=== PATIENT | female | born 1940 | race Caucasian/White ===

== ENCOUNTER 2020-03-27 17:39 | Emergency (ER) | payer MEDICARE, OTHER ==
--- NOTE | 2020-03-27 18:59 | XR ---
EXAMINATION TYPE: XR KUB DATE OF EXAM: 03/27/2020 COMPARISON: 04/05/2017 HISTORY: Abdominal pain TECHNIQUE: FINDINGS: 2 views upright were obtained and show no sign of intestinal obstruction or pneumoperitoneu m. There is retained fecal material in the rectum. Lung bases are clear. There is no evidence of a ma ss. IMPRESSION: Rectal fecal impaction. No free air. Constipation similar to old exam.
[2020-03-27] MEDS ORDERED: MAGNESIUM CITRATE 296 ML BOTTLE PO ONE (19:09)
--- NOTE | 2020-03-27 19:12 | ED ---
General Adult HPI - General Chief complaint: Abdominal Pain Stated complaint: Diarrhea(dark) abd pain Time Seen by Provider: 03/27/20 17:54 Source: patient, RN notes reviewed, old records reviewed Mode of arrival: wheelchair Limitations: no limitations - History of Present Illness Initial comments: 80-year-old female presenting with abdominal pain. Patient has history of constipation. She states that over the past several days she's had increased ab dominal distention, and diarrhea. She states she had had some leakage as well as normal bowel movements in between. She denies fever. She denies vomiting. Denies dysuria or hematuria. - Related Data Home Medications Medication Instructions Recorded Confirmed ALPRAZolam [Xanax] 0.5 mg PO Q12H PRN 05/29/14 04/05/17 Atenolol 50 mg PO BID 05/29/14 04/05/17 amLODIPine BESYLATE [Amlodipine 10 mg PO DAILY 05/29/14 04/05/17 Besylate] cloNIDine HCL 0.3 mg PO TID 05/29/14 04/05/17 lisinopriL [Lisinopril] 20 mg PO BID 05/29/14 04/05/17 Latanoprost [Xalatan 0.005%] 1 drop BOTH EYES HS 04/05/17 04/05/17 Lovastatin [Mevacor] 80 mg PO DAILY 04/05/17 04/05/17 Vit A/Vit C/Vit E/Zinc/Copper 1 cap PO BID 04/05/17 04/05/17 [ICAPS SOFTGEL] hydrALAZINE HCL [Apresoline] 25 mg PO AC-TID 04/05/17 04/05/17 hydroCHLOROthiazide [Hydrodiuril] 25 mg PO DAILY 04/05/17 04/05/17 Previous Rx's Medication Instructions Recorded Docusate [Colace] 100 mg PO BID #60 capsule 03/27/20 Polyethylene Glycol 3350 [Miralax] 17 gm PO DAILY #527 gm 03/27/20 Allergies Allergy/AdvReac Type Severity Reaction Status Date / Time amoxicillin Allergy Rash/Hives Verified 03/27/20 17:46 Penicillins Allergy Rash/Hives Verified 03/27/20 17:46 ciprofloxacin [From Cipro] AdvReac stomach Verified 03/27/20 17:46 upset and dizzy sulfamethoxazole AdvReac stomach Verified 03/27/20 17:46 [From Bactrim] upset and dizzy trimethoprim [From Bactrim] AdvReac stomach Verified 03/27/20 17:46 upset and dizzy Review of Systems ROS Statement: Those systems with pertinent positive or pertinent negative responses have been documented in the HPI. ROS Other: All systems not noted in ROS Statement are negative. Past Medical History Past Medical History: Hyperlipidemia, Hypertension Additional Past Medical History / Comment(s): chronic constipation History of Any Multi-Drug Resistant Organisms: None Reported Past Surgical History: Appendectomy Past Psychological History: Anxiety Smoking Status: Never smoker Past Alcohol Use History: None Reported Past Drug Use History: None Reported General Exam Limitations: no limitations General appearance: alert, in no apparent distress Head exam: Present: atraumatic, normocephalic Eye exam: Present: normal appearance, PERRL ENT exam: Present: normal exam Neck exam: Present: normal inspection. Absent: tenderness, meningismus Respiratory exam: Present: normal lung sounds bilaterally. Absent: respiratory distress, wheezes Cardiovascular Exam: Present: regular rate, normal rhythm GI/Abdominal exam: Present: soft, distended, tenderness (Minimal generalized tenderness) Rectal exam: Present: fecal impaction Extremities exam: Present: normal inspection, full ROM Back exam: Present: normal inspection. Absent: full ROM Neurological exam: Present: alert, oriented X3, CN II-XII intact. Absent: motor sensory deficit Psychiatric exam: Present: normal affect, normal mood Skin exam: Present: warm, dry, intact. Absent: cyanosis, diaphoretic Course Vital Signs 03/27/20 17:42 Temperature 97.9 F Pulse Rate 72 Respiratory 20 Rate Blood Pressure 172/102 O2 Sat by Pulse 97 Oximetry Medical Decision Making - Medical Decision Making 80-year-old female with generalized abdominal pain, diarrhea. History suggestive of constipation with stool leakage. Exam confirming rectal fecal impaction. X-ray shows a large stool burden. She has been disimpacted in the emergency department and was given an enema with a large amount of stool output. She is feeling much better, pain has resolved. She is given also magnesium citrate and will be prescribed MiraLAX and Colace. She will return with worsening or changing symptoms. - Lab Data Result diagrams: 03/27/20 18:38 03/27/20 18:38 Lab Results 03/27/20 03/27/20 03/27/20 Range/Units 18:38 18:38 18:38 WBC 10.7 H (3.8-10.6) k/uL RBC 5.19 (3.80-5.40) m/uL Hgb 15.5 (11.4-16.0) gm/dL Hct 48.7 H (34.0-46.0) % MCV 93.9 (80.0-100.0) fL MCH 29.9 (25.0-35.0) pg MCHC 31.8 (31.0-37.0) g/dL RDW 13.6 (11.5-15.5) % Plt Count 248 (150-450) k/uL Neutrophils % 71 % Lymphocytes % 20 % Monocytes % 5 % Eosinophils % 2 % Basophils % 1 % Neutrophils # 7.7 (1.3-7.7) k/uL Lymphocytes # 2.1 (1.0-4.8) k/uL Monocytes # 0.6 (0-1.0) k/uL Eosinophils # 0.2 (0-0.7) k/uL Basophils # 0.1 (0-0.2) k/uL PT 9.7 (9.0-12.0) sec INR 0.9 (<1.2) APTT 23.8 (22.0-30.0) sec Sodium 139 (137-145) mmol/L Potassium 4.6 (3.5-5.1) mmol/L Chloride 103 (98-107) mmol/L Carbon Dioxide 27 (22-30) mmol/L Anion Gap 9 mmol/L BUN 21 H (7-17) mg/dL Creatinine 0.65 (0.52-1.04) mg/dL Est GFR (CKD-EPI)AfAm >90 (>60 ml/min/1.73 sqM) Est GFR (CKD-EPI)NonAf 84 (>60 ml/min/1.73 sqM) Glucose 111 H (74-99) mg/dL Plasma Lactic Acid Feliciano (0.7-2.0) mmol/L Calcium 9.9 (8.4-10.2) mg/dL Total Bilirubin 0.9 (0.2-1.3) mg/dL AST 39 H (14-36) U/L ALT 17 (4-34) U/L Alkaline Phosphatase 68 (38-126) U/L Total Protein 7.7 (6.3-8.2) g/dL Albumin 4.8 (3.5-5.0) g/dL Amylase 57 (30-110) U/L Lipase 129 (23-300) U/L Stool Occult Blood (Negative) 03/27/20 03/27/20 Range/Units 18:38 18:38 WBC (3.8-10.6) k/uL RBC (3.80-5.40) m/uL Hgb (11.4-16.0) gm/dL Hct (34.0-46.0) % MCV (80.0-100.0) fL MCH (25.0-35.0) pg MCHC (31.0-37.0) g/dL RDW (11.5-15.5) % Plt Count (150-450) k/uL Neutrophils % % Lymphocytes % % Monocytes % % Eosinophils % % Basophils % % Neutrophils # (1.3-7.7) k/uL Lymphocytes # (1.0-4.8) k/uL Monocytes # (0-1.0) k/uL Eosinophils # (0-0.7) k/uL Basophils # (0-0.2) k/uL PT (9.0-12.0) sec INR (<1.2) APTT (22.0-30.0) sec Sodium (137-145) mmol/L Potassium (3.5-5.1) mmol/L Chloride (98-107) mmol/L Carbon Dioxide (22-30) mmol/L Anion Gap mmol/L BUN (7-17) mg/dL Creatinine (0.52-1.04) mg/dL Est GFR (CKD-EPI)AfAm (>60 ml/min/1.73 sqM) Est GFR (CKD-EPI)NonAf (>60 ml/min/1.73 sqM) Glucose (74-99) mg/dL Plasma Lactic Acid Feliciano 1.6 (0.7-2.0) mmol/L Calcium (8.4-10.2) mg/dL Total Bilirubin (0.2-1.3) mg/dL AST (14-36) U/L ALT (4-34) U/L Alkaline Phosphatase (38-126) U/L Total Protein (6.3-8.2) g/dL Albumin (3.5-5.0) g/dL Amylase (30-110) U/L Lipase (23-300) U/L Stool Occult Blood Negative (Negative) Disposition Clinical Impression: Constipation, Abdominal pain Disposition: HOME SELF-CARE Condition: Good Instructions (If sedation given, give patient instructions): Abdominal Pain (ED), Fecal Impaction (ED), Constipation (ED) Prescriptions: Docusate [Colace] 100 mg PO BID #60 capsule Polyethylene Glycol 3350 [Miralax] 17 gm PO DAILY #527 gm Is patient prescribed a controlled substance at d/c from ED?: No Referrals: Melvin Gamino DO [Primary Care Provider] - 1-2 days Time of Disposition: 19:55
[2020-03-27 19:23] LABS: Basophils # (A) 0.1 k/uL (0-0.2); Basophils % (A) 1 %; Eosinophils # (A) 0.2 k/uL (0-0.7); Eosinophils % (A) 2 %; HCT 48.7 % (34.0-46.0); HGB 15.5 gm/dL (11.4-16.0); Lymphocytes # (A) 2.1 k/uL (1.0-4.8); Lymphocytes % (A) 20 %; MCH 29.9 pg (25.0-35.0); MCHC 31.8 g/dL (31.0-37.0); MCV 93.9 fL (80.0-100.0); Mean Platelet Volume 8.9; Monocytes # (A) 0.6 k/uL (0-1.0); Monocytes % (A) 5 %; Neutrophils # (A) 7.7 k/uL (1.3-7.7); Neutrophils % (A) 71 %; Platelet Count 248 k/uL (150-450); RBC 5.19 m/uL (3.80-5.40); RDW 13.6 % (11.5-15.5); WBC 10.7 k/uL (3.8-10.6)
[2020-03-27 19:33] LABS: INR 0.9 (<1.2); Partial Thromboplastin Time 23.8 sec (22.0-30.0); Prothrombin Time 9.7 sec (9.0-12.0)
[2020-03-27 19:40] LABS: ALT 17 U/L (4-34); AST 39 U/L (14-36); African American GFR (CKD) >90 (>60 ml/min/1.73 sqM); Albumin 4.8 g/dL (3.5-5.0); Alkaline Phosphatase 68 U/L (38-126); Amylase 57 U/L (30-110); Anion Gap 9 mmol/L; Blood Urea Nitrogen 21 mg/dL (7-17); Calcium 9.9 mg/dL (8.4-10.2); Carbon Dioxide 27 mmol/L (22-30); Chloride 103 mmol/L (98-107); Glucose 111 mg/dL (74-99); Non-African American GFR(CKD) 84 (>60 ml/min/1.73 sqM); Potassium 4.6 mmol/L (3.5-5.1); Sodium 139 mmol/L (137-145); Total Bilirubin 0.9 mg/dL (0.2-1.3); Total Protein 7.7 g/dL (6.3-8.2)
[2020-03-27 20:23] VITALS: BP 178/90; PULSE 74; RESP 19; TEMP 98
== END 2020-03-27 20:12 | disposition home or self-care (01) ==
LOC: EC 17:39
DX: K59.00 Constipation, unspecified (principal); F41.9 Anxiety disorder, unspecified; E78.5 Hyperlipidemia, unspecified; I10 Essential (primary) hypertension; Z79.899 Other long term (current) drug therapy; Z88.0 Allergy status to penicillin; Z88.1 Allergy status to other antibiotic agents; Z88.2 Allergy status to sulfonamides; Z90.49 Acquired absence of other specified parts of digestive tract
CPT/HCPCS: 36415; 74018; 80053; 82150; 82272; 83605; 83690; 85025; 85610; 85730; 99284

== ENCOUNTER 2022-06-28 08:37 | Observation (INO) | payer MEDICARE, OTHER ==
[2022-06-28] MEDS ORDERED: ACETAMINOPHEN TAB 500 MG TAB PO STA (09:07)
--- NOTE | 2022-06-28 09:11 | ED ---
General Adult HPI - General Chief complaint: Chest Pain Stated complaint: chest pain Time Seen by Provider: 06/28/22 08:45 Source: patient, family, RN notes reviewed, old records reviewed Mode of arrival: ambulatory Limitations: no limitations - History of Present Illness Initial comments: This is an 82-year-old female presents emergency Department with a past medical history significant for smoking high blood pressure high cholesterol. Patient comes in today because she woke up the middle night with chest pain. Patient states she thinks taking a deep breath sometimes makes it worse. Patient denies shortness of breath per patient states she's had occasional cough. Patient denies any recent lifting or moving. Patient states pressing the area around her left breast does cause her tenderness. Patient denies any diaphoretic episodes. Patient denies any abdominal pain patient denies nausea vomiting diarrhea per patient denies any increased swelling to her legs she states she always has some swelling. - Related Data Home Medications Medication Instructions Recorded Confirmed ALPRAZolam [Xanax] 0.5 mg PO Q12H PRN 05/29/14 06/28/22 Lovastatin [Mevacor] 80 mg PO HS 04/05/17 06/28/22 Aspirin EC [Ecotrin Low Dose] 81 mg PO DAILY 06/28/22 06/28/22 Cholecalciferol [Vitamin D3 (25 25 mcg PO DAILY 06/28/22 06/28/22 Mcg = 1000 Iu)] Nitroglycerin Sl Tabs [Nitrostat] 0.4 mg SUBLINGUAL Q5M PRN 06/28/22 06/28/22 atenoloL [Tenormin] 50 mg PO BID 06/28/22 06/28/22 cloNIDine HCL [Catapres] 0.3 mg PO TID 06/28/22 06/28/22 hydrALAZINE HCL [Apresoline] 75 mg PO TID 06/28/22 06/28/22 lisinopriL [Zestril] 20 mg PO BID 06/28/22 06/28/22 Allergies Allergy/AdvReac Type Severity Reaction Status Date / Time amoxicillin Allergy Rash/Hives Verified 06/28/22 11:24 Penicillins Allergy Rash/Hives Verified 06/28/22 11:25 ciprofloxacin [From Cipro] AdvReac stomach Verified 06/28/22 11:24 upset and dizzy sulfamethoxazole AdvReac stomach Verified 06/28/22 11:24 [From Bactrim] upset and dizzy trimethoprim [From Bactrim] AdvReac stomach Verified 06/28/22 11:24 upset and dizzy Review of Systems ROS Statement: Those systems with pertinent positive or pertinent negative responses have been documented in the HPI. ROS Other: All systems not noted in ROS Statement are negative. Past Medical History Past Medical History: Hyperlipidemia, Hypertension Additional Past Medical History / Comment(s): chronic constipation History of Any Multi-Drug Resistant Organisms: None Reported Past Surgical History: Appendectomy Past Psychological History: Anxiety Smoking Status: Never smoker Past Alcohol Use History: None Reported Past Drug Use History: None Reported General Exam - General Exam Comments Initial Comments: GENERAL: Patient is well-developed and well-nourished. Patient is nontoxic and well- hydrated and is in mild distress. ENT: Neck is soft and supple. No significant lymphadenopathy is noted. Oropharynx is clear. Moist mucous membranes. Neck has full range of motion without eliciting any pain. EYES: The sclera were anicteric and conjunctiva were pink and moist. Extraocular movements were intact and pupils were equal round and reactive to light. Eyelids were unremarkable. PULMONARY: Unlabored respirations. Good breath sounds bilaterally. No audible rales rhonchi or wheezing was noted. CARDIOVASCULAR: There is a regular rate and rhythm without any murmurs gallops or rubs. Patient has tenderness to palpation around the left breast no rashes or lesions noted ABDOMEN: Soft and nontender with normal bowel sounds. SKIN: Skin is clear with no lesions or rashes and otherwise unremarkable. NEUROLOGIC: Patient is alert and oriented x3. Cranial nerves II through XII are grossly intact. Motor and sensory are also intact. Normal speech, volume and content. Symmetrical smile. MUSCULOSKELETAL: Normal extremities with adequate strength and full range of motion. No lower extremity swelling or edema. No calf tenderness. LYMPHATICS: No significant lymphadenopathy is noted PSYCHIATRIC: Normal psychiatric evaluation. Limitations: no limitations Course Vital Signs 06/28/22 06/28/22 06/28/22 08:43 08:55 09:05 Temperature 98 F 99.5 F Pulse Rate 94 Pulse Rate [ 72 [employer] ] Respiratory 18 Rate Blood Pressure 159/84 O2 Sat by Pulse 95 Oximetry 06/28/22 10:00 Temperature Pulse Rate 68 Pulse Rate [ [employer] ] Respiratory 18 Rate Blood Pressure 118/72 O2 Sat by Pulse 94 L Oximetry Medical Decision Making - Medical Decision Making EKG was interpreted by myself shows a sinus rhythm at 73 bpm NC interval is 160 QRS is 74 QT interval 382 QTC is 49. Patient's EKG shows no ST segment elevation or depression. Was pt. sent in by a medical professional or institution (, NICHOLAS, RECEIVING WORKER, urgent care, hospital, or assisted...) When possible be specific @ -No Did you speak to anyone other than the patient for history (EMS, parent, family, police, friend...)? What history was obtained from this source @ -No Did you review nursing and triage notes (agree or disagree)? Why? @ -I reviewed and agree with nursing and triage notes Were old charts reviewed (outside hosp., previous admission, EMS record, old EKG, old radiological studies, urgent care reports/EKG's, assisted records)? Report findings @ -Previous radiological studies were reviewed Differential Diagnosis (chest pain, altered mental status, abdominal pain women, abdominal pain men, vaginal bleeding, weakness, fever, dyspnea, syncope, headache, dizziness, GI bleed, back pain, seizure, CVA, palpatations, mental health)? @ -Differential Chest Pain: Stable Angina, Unstable Angina, STEMI, NSTEMI Aortic Dissection, Pneumothorax, Musculoskeletal, Esophageal Spasm GERD, Cholecystitis, Pancreatitis, Zoster, this is not meant to be an all-inclusive list. EKG interpreted by me (3pts min.). @ -As above X-rays interpreted by me (1pt min.). @ -Chest x-rays interpreted by myself is on no acute normalities. CT interpreted by me (1pt min.). @ -Computed tomography scan was interpreted by myself it does show a left upper lobe pneumonia anteriorly U/S interpreted by me (1pt. min.). @ -None done What testing was considered but not performed or refused? (CT, X-rays, U/S, labs)? Why? @ -None What meds were considered but not given or refused? Why? @ -None Did you discuss the management of the patient with other professionals (professionals i.e. NICHOLAS García, RECEIVING WORKER, lab, RT, psych nurse, medical social consultant, manager business process, teacher, community reinvestment act officer, piano case maker)? Give summary @ -I spoke with [facility] agreed to admit the patient admitted the patient remaining orders Was smoking cessation discussed for >3mins.? @ -No Was critical care preformed (if so, how long)? @ -No Were there social determinants of health that impacted care today? How? (Homelessness, low income, unemployed, alcoholism, drug addiction, transportation, low edu. Level, literacy, decrease access to med. care, retirement, rehab)? @ -No Was there de-escalation of care discussed even if they declined (Discuss DNR or withdrawal of care, Hospice)? DNR status @ -No What co-morbidities impacted this encounter? (DM, HTN, Smoking, COPD, CAD, Cancer, CVA, ARF, Chemo, Hep., AIDS, mental health diagnosis, sleep apnea, morbid obesity)? @ -Patient has a smoking history which can worsen her gas exchange lungs and lead to hypoxia especially with pneumonia. Was patient admitted / discharged? Hospital course, mention meds given and route, prescriptions, significant lab abnormalities, going to OR and other pertinent info. @ -Patient's CAT scan showed a pneumonia I started the patient antibiotics I ordered blood cultures and a lactic acid. I spoke with [facility] significant at the patient admitted the patient. Patient was diagnosed with pneumonia at 1125. Undiagnosed new problem with uncertain prognosis? @ -No Drug Therapy requiring intensive monitoring for toxicity (Heparin, Nitro, Insulin, Cardizem)? @ -No Were any procedures done? @ -No Diagnosis/symptom? @ -Pneumonia Acute, or Chronic, or Acute on Chronic? @ -Acute Uncomplicated (without systemic symptoms) or Complicated (systemic symptoms)? @ -Complicated Side effects of treatment? @ -No Exacerbation, Progression, or Severe Exacerbation? @ -No Poses a threat to life or bodily function? How? (Chest pain, [place], [place], pneumonia, PE, COPD, DKA, ARF, appy, cholecystitis, CVA, Diverticulitis, Homicidal, Suicidal, threat to staff... and all critical care pts) @ -Yes can lead to hypoxia which lead to end organ dysfunction - Lab Data Result diagrams: 06/28/22 09:10 06/28/22 09:10 Lab Results 06/28/22 06/28/22 06/28/22 Range/Units 09:10 09:10 09:10 WBC 18.7 H (3.8-10.6) k/uL RBC 4.62 (3.80-5.40) m/uL Hgb 14.2 (11.4-16.0) gm/dL Hct 42.9 (34.0-46.0) % MCV 92.7 (80.0-100.0) fL MCH 30.7 (25.0-35.0) pg MCHC 33.1 (31.0-37.0) g/dL RDW 13.9 (11.5-15.5) % Plt Count 183 (150-450) k/uL MPV 9.0 Neutrophils % 89 % Lymphocytes % 5 % Monocytes % 4 % Eosinophils % 1 % Basophils % 0 % Neutrophils # 16.6 H (1.3-7.7) k/uL Lymphocytes # 0.9 L (1.0-4.8) k/uL Monocytes # 0.8 (0-1.0) k/uL Eosinophils # 0.2 (0-0.7) k/uL Basophils # 0.0 (0-0.2) k/uL PT 9.6 (9.0-12.0) sec INR 0.9 (<1.2) APTT 23.2 (22.0-30.0) sec D-Dimer 0.84 H (<0.60) mg/L FEU Sodium 138 (137-145) mmol/L Potassium 4.0 (3.5-5.1) mmol/L Chloride 103 (98-107) mmol/L Carbon Dioxide 31 H (22-30) mmol/L Anion Gap 4 mmol/L BUN 17 (7-17) mg/dL Creatinine 0.55 (0.52-1.04) mg/dL Est GFR (CKD-EPI)AfAm >90 (>60 ml/min/1.73 sqM) Est GFR (CKD-EPI)NonAf 88 (>60 ml/min/1.73 sqM) Glucose 107 H (74-99) mg/dL Calcium 9.1 (8.4-10.2) mg/dL Magnesium 2.1 (1.6-2.3) mg/dL Total Bilirubin 0.7 (0.2-1.3) mg/dL AST 24 (14-36) U/L ALT 17 (4-34) U/L Alkaline Phosphatase 63 (38-126) U/L Troponin I (0.000-0.034) ng/mL Total Protein 6.5 (6.3-8.2) g/dL Albumin 4.0 (3.5-5.0) g/dL 06/28/22 Range/Units 09:10 WBC (3.8-10.6) k/uL RBC (3.80-5.40) m/uL Hgb (11.4-16.0) gm/dL Hct (34.0-46.0) % MCV (80.0-100.0) fL MCH (25.0-35.0) pg MCHC (31.0-37.0) g/dL RDW (11.5-15.5) % Plt Count (150-450) k/uL MPV Neutrophils % % Lymphocytes % % Monocytes % % Eosinophils % % Basophils % % Neutrophils # (1.3-7.7) k/uL Lymphocytes # (1.0-4.8) k/uL Monocytes # (0-1.0) k/uL Eosinophils # (0-0.7) k/uL Basophils # (0-0.2) k/uL PT (9.0-12.0) sec INR (<1.2) APTT (22.0-30.0) sec D-Dimer (<0.60) mg/L FEU Sodium (137-145) mmol/L Potassium (3.5-5.1) mmol/L Chloride (98-107) mmol/L Carbon Dioxide (22-30) mmol/L Anion Gap mmol/L BUN (7-17) mg/dL Creatinine (0.52-1.04) mg/dL Est GFR (CKD-EPI)AfAm (>60 ml/min/1.73 sqM) Est GFR (CKD-EPI)NonAf (>60 ml/min/1.73 sqM) Glucose (74-99) mg/dL Calcium (8.4-10.2) mg/dL Magnesium (1.6-2.3) mg/dL Total Bilirubin (0.2-1.3) mg/dL AST (14-36) U/L ALT (4-34) U/L Alkaline Phosphatase (38-126) U/L Troponin I 0.012 (0.000-0.034) ng/mL Total Protein (6.3-8.2) g/dL Albumin (3.5-5.0) g/dL Disposition Clinical Impression: Pneumonia Disposition: ADMITTED IP TO THIS HOSP Referrals: Melvin Gamino DO [Primary Care Provider] - 1-2 days Time of Disposition: 11:25
[2022-06-28 09:25] LABS: Basophils % (A) 0 %; Eosinophils # (A) 0.2 k/uL (0-0.7); Eosinophils % (A) 1 %; HCT 42.9 % (34.0-46.0); HGB 14.2 gm/dL (11.4-16.0); Lymphocytes # (A) 0.9 k/uL (1.0-4.8); Lymphocytes % (A) 5 %; MCH 30.7 pg (25.0-35.0); MCHC 33.1 g/dL (31.0-37.0); MCV 92.7 fL (80.0-100.0); Monocytes # (A) 0.8 k/uL (0-1.0); Monocytes % (A) 4 %; Neutrophils # (A) 16.6 k/uL (1.3-7.7); Neutrophils % (A) 89 %; Platelet Count 183 k/uL (150-450); RBC 4.62 m/uL (3.80-5.40); RDW 13.9 % (11.5-15.5); WBC 18.7 k/uL (3.8-10.6)
[2022-06-28 09:37] LABS: INR 0.9 (<1.2); Partial Thromboplastin Time 23.2 sec (22.0-30.0); Prothrombin Time 9.6 sec (9.0-12.0)
--- NOTE | 2022-06-28 09:45 | XR ---
EXAMINATION TYPE: XR chest 2V DATE OF EXAM: 06/28/2022 9:37 AM COMPARISON: Chest radiographs from 05/28/2014. TECHNIQUE: XR chest 2V Frontal and lateral views of the chest. CLINICAL INDICATION:Female, 82 years old with history of Chest Pain; FINDINGS: Lungs/Pleura: There is flattening of the diaphragm with increased lucency of the lungs. No evidence o f pneumothorax, pleural effusion or focal consolidation. Pulmonary vascularity: Unremarkable. Heart/mediastinum: Cardiomediastinal silhouette is unremarkable. Atherosclerotic calcifications are seen in the aorta. Musculoskeletal: Multiple level degenerative disc disease changes seen throughout the spine. Bilatera l shoulder arthropathy with suggested calcific tendinosis bilaterally. Levocurvature of the upper tho racic spine. IMPRESSION: 1. No acute cardiopulmonary disease process. 2. COPD changes.
[2022-06-28 10:01] LABS: ALT 17 U/L (4-34); AST 24 U/L (14-36); African American GFR (CKD) >90 (>60 ml/min/1.73 sqM); Alkaline Phosphatase 63 U/L (38-126); Anion Gap 4 mmol/L; Blood Urea Nitrogen 17 mg/dL (7-17); Calcium 9.1 mg/dL (8.4-10.2); Carbon Dioxide 31 mmol/L (22-30); Chloride 103 mmol/L (98-107); Glucose 107 mg/dL (74-99); Magnesium 2.1 mg/dL (1.6-2.3); Non-African American GFR(CKD) 88 (>60 ml/min/1.73 sqM); Sodium 138 mmol/L (137-145); Total Bilirubin 0.7 mg/dL (0.2-1.3); Total Protein 6.5 g/dL (6.3-8.2)
--- NOTE | 2022-06-28 11:06 | CT ---
EXAMINATION TYPE: CT chest angio for PE CT DLP: 181.7 mGycm, Automated exposure control for dose reduction was used. DATE OF EXAM: 06/28/2022 10:50 AM COMPARISON: . Chest radiograph from same day. CT chest abdomen and pelvis 05/28/2014. CLINICAL INDICATION:Female, 82 years old with history of Elevated d-dimer, chest pain; chest pain TECHNIQUE/CONTRAST: CTA scan of the thorax is performed without and with IV Contrast, patient injected with 100 mL of Iso leidy 370, pulmonary embolism protocol. MIP images are created and reviewed. FINDINGS: Pulmonary Artery: There is no evidence for a filling defect within the pulmonary vasculature to sugge st acute pulmonary embolism. The pulmonary artery is of normal size. Lungs/Pleura: Minimal biapical pleural-parenchymal scarring. Mild centrilobular emphysematous changes . Patchy consolidation within the medial aspect of the right upper lobe. 1.6 cm nodule within the rig ht midlung medially (series 4, image 59), previous measured up to 1.4 cm in 2014. Patchy reticular gr oundglass opacities within the superior segment of the right lower lobe. Airway: Large airways are patent. Heart: Heart is within normal limits for size. No pericardial effusion. Vasculature: No evidence of aortic aneurysm. Atherosclerotic calcifications aorta and its branches. Mediastinum: No gross evidence of adenopathy. Musculoskeletal: No acute osseous abnormalities. Mild bilateral shoulder arthropathy. Scoliotic curva ture. Mild multilevel degenerative disc disease. Nonspecific sclerotic focus within the T5 vertebral body or possible bone island. Soft Tissues: Unremarkable. Lower neck: No significant findings. Upper Abdomen: No significant findings. IMPRESSION: 1. No evidence of pulmonary embolism. 2. Patchy consolidation within the medial aspect of the left upper lobe concerning for pneumonia. 3. Marginal increase in right midlung 1.6 cm pulmonary nodule, previously 1.4 cm in 2014. No new pulm onary nodules. Further evaluation with PET/CT is recommended. 4. Mild COPD changes.
[2022-06-28] MEDS ORDERED: cefTRIAXone IN SWFI 1,000 MG/10 ML SYRINGE IVP STA (11:24)
[2022-06-28] MEDS ORDERED: PNEUMONIA PROTOCOL UTILIZED 1 EACH MISC PO PRN (11:36)
[2022-06-28] MEDS ORDERED: NITROGLYCERIN SL TABS 0.4 MG TAB SUBLINGUAL PRN (13:18)
--- NOTE | 2022-06-28 13:31 | P.HPIM ---
History of Present Illness 82-year-old the female came in with complaints of chest pain which is pleuritic in nature has been going on for last 2-3 days increases with deep breathing patient had a chest x-ray which was within normal limits and the patient had a mildly elevated d-dimer because of which the CT of the chest was obtained and there was some infiltrate in the ER is concerned about pneumonia and patient was admitted for that reason the patient was given Rocephin in ER. I reviewed the CAT scan of the chest there is a mild nonspecific infiltrate in the nodule which has grown since last imaging. No infiltrate consistent with the pneumonia Patient does have elevated white count. Patient appears to have some pulmonary edema on the CAT scan of the chest does have bilateral pedal edema patient had an EF of around 60-60% REVIEW OF SYSTEMS: CONSTITUTIONAL: No fever, no malaise, no fatigue. HEENT: No recent visual problems or hearing problems. Denied any sore throat. CARDIOVASCULAR: No chest pain, orthopnea, PND, no palpitations, no syncope. PULMONARY: no hemoptysis. GASTROINTESTINAL: No diarrhea, no nausea, no vomiting, no abdominal pain. NEUROLOGICAL: No headaches, no weakness, no numbness. HEMATOLOGICAL: Denies any bleeding or petechiae. GENITOURINARY: Denies any burning micturition, frequency, or urgency. MUSCULOSKELETAL/RHEUMATOLOGICAL: Denies any joint pain, swelling, or any muscle pain. ENDOCRINE: Denies any polyuria or polydipsia. The rest of the 14-point review of systems is negative. PHYSICAL EXAMINATION: GENERAL: The patient is alert and oriented x3, not in any acute distress. Well developed, well nourished. HEENT: Pupils are round and equally reacting to light. EOMI. No scleral icterus. No conjunctival pallor. Normocephalic, atraumatic. No pharyngeal erythema. No thyromegaly. CARDIOVASCULAR: S1 and S2 present. No murmurs, rubs, or gallops. PULMONARY: Chest is clear to auscultation, no wheezing or crackles. ABDOMEN: Soft, nontender, nondistended, normoactive bowel sounds. No palpable o rganomegaly. MUSCULOSKELETAL: No joint swelling or deformity. EXTREMITIES: No cyanosis, clubbing, bilateral lower extremity edema NEUROLOGICAL: Gross neurological examination did not reveal any focal deficits. SKIN: No rashes. Assessment and plan -Chest pain: appears to be musculoskeletal there is no evidence of pneumonia pulmonary embolism in the computed tomography scan troponin is negative and the check 2 more sets of troponins appears to be noncardiac chest pain. Rule out pulmonary embolism -Possible congestive heart failure chronic diastolic dysfunction with mild acute exacerbation patient was started on low-dose of Lasix. -Hyperlipidemia -Hypertension DVT prophylaxis: Lovenox Past Medical History Past Medical History: Hyperlipidemia, Hypertension Additional Past Medical History / Comment(s): chronic constipation History of Any Multi-Drug Resistant Organisms: None Reported Past Surgical History: Appendectomy Past Psychological History: Anxiety Smoking Status: Never smoker Past Alcohol Use History: None Reported Past Drug Use History: None Reported Medications and Allergies Home Medications Medication Instructions Recorded Confirmed Type ALPRAZolam [Xanax] 0.5 mg PO Q12H PRN 05/29/14 06/28/22 History Lovastatin [Mevacor] 80 mg PO HS 04/05/17 06/28/22 History Aspirin EC [Ecotrin Low Dose] 81 mg PO DAILY 06/28/22 06/28/22 History Cholecalciferol [Vitamin D3 (25 25 mcg PO DAILY 06/28/22 06/28/22 History Mcg = 1000 Iu)] Nitroglycerin Sl Tabs [Nitrostat] 0.4 mg SUBLINGUAL Q5M PRN 06/28/22 06/28/22 History atenoloL [Tenormin] 50 mg PO BID 06/28/22 06/28/22 History cloNIDine HCL [Catapres] 0.3 mg PO TID 06/28/22 06/28/22 History hydrALAZINE HCL [Apresoline] 75 mg PO TID 06/28/22 06/28/22 History lisinopriL [Zestril] 20 mg PO BID 06/28/22 06/28/22 History Allergies Allergy/AdvReac Type Severity Reaction Status Date / Time amoxicillin Allergy Rash/Hives Verified 06/28/22 11:24 Penicillins Allergy Rash/Hives Verified 06/28/22 11:25 ciprofloxacin [From Cipro] AdvReac stomach Verified 06/28/22 11:24 upset and dizzy sulfamethoxazole AdvReac stomach Verified 06/28/22 11:24 [From Bactrim] upset and dizzy trimethoprim [From Bactrim] AdvReac stomach Verified 06/28/22 11:24 upset and dizzy Physical Exam Vitals: Vital Signs Temp Pulse Pulse Resp BP Pulse Ox 06/28/22 12:04 71 16 120/66 94 L 06/28/22 10:00 68 18 118/72 94 L 06/28/22 09:05 99.5 F 06/28/22 08:55 72 06/28/22 08:43 98 F 94 18 159/84 95 Intake and Output 06/27/22 06/28/22 06/28/22 22:59 06:59 14:59 Other: Weight 45.359 kg Results CBC & Chem 7: 06/28/22 09:10 06/28/22 09:10 Labs: Abnormal Lab Results - Last 24 Hours (Table) 06/28/22 06/28/22 06/28/22 Range/Units 09:10 09:10 09:10 WBC 18.7 H (3.8-10.6) k/uL Neutrophils # 16.6 H (1.3-7.7) k/uL Lymphocytes # 0.9 L (1.0-4.8) k/uL D-Dimer 0.84 H (<0.60) mg/L FEU Carbon Dioxide 31 H (22-30) mmol/L Glucose 107 H (74-99) mg/dL
[2022-06-28] MEDS: ACETAMINOPHEN TAB 325 MG TAB PO PRN ×2 (15:21→22:39)
[2022-06-28] MEDS: FUROSEMIDE 10 MG/ML 2 ML VIAL IV SCH ×2 (15:21→20:40)
[2022-06-28] MEDS: hydrALAZINE HCL 25 MG TAB PO SCH ×2 (16:00→20:47)
[2022-06-28] MEDS: ATORVASTATIN 20 MG TAB PO SCH (20:40)
[2022-06-28] MEDS: atenoloL 50 MG TAB PO SCH (20:40)
[2022-06-28] MEDS: ALPRAZolam 0.5 MG TAB PO PRN (20:50)
[2022-06-29 06:24] LABS: African American GFR (CKD) >90 (>60 ml/min/1.73 sqM); Anion Gap 6 mmol/L; Blood Urea Nitrogen 16 mg/dL (7-17); Calcium 8.6 mg/dL (8.4-10.2); Carbon Dioxide 33 mmol/L (22-30); Chloride 99 mmol/L (98-107); Glucose 91 mg/dL (74-99); Non-African American GFR(CKD) 81 (>60 ml/min/1.73 sqM); Potassium 3.2 mmol/L (3.5-5.1); Sodium 138 mmol/L (137-145)
--- NOTE | 2022-06-29 08:11 | XR ---
EXAMINATION TYPE: XR chest 2V DATE OF EXAM: 06/29/2022 7:46 AM COMPARISON: Chest radiographs from 06/28/2022 TECHNIQUE: XR chest 2V Frontal and lateral views of the chest. CLINICAL INDICATION:Female, 82 years old with history of pneumonia; FINDINGS: Lungs/Pleura: There is flattening of the diaphragm with increased lucency of the lungs. No evidence o f pneumothorax, pleural effusion or focal consolidation. Pulmonary vascularity: Unremarkable. Heart/mediastinum: Cardiomediastinal silhouette is unremarkable. Musculoskeletal: No acute osseous pathology. IMPRESSION: 1. No acute cardiopulmonary disease process. 2. COPD changes.
[2022-06-29] MEDS: hydrALAZINE HCL 25 MG TAB PO SCH ×3 (08:32→21:25)
[2022-06-29] MEDS: atenoloL 50 MG TAB PO SCH ×2 (08:32→20:20)
[2022-06-29] MEDS: ACETAMINOPHEN TAB 325 MG TAB PO PRN (08:33)
[2022-06-29] MEDS: ENOXAPARIN 40 MG/0.4 ML SYRINGE SQ SCH (08:34)
[2022-06-29] MEDS: ASPIRIN 81 MG PO SCH (08:34)
[2022-06-29] MEDS: FUROSEMIDE 10 MG/ML 2 ML VIAL IV SCH (09:07)
[2022-06-29] MEDS ORDERED: Potassium Replacement Protocol 1 EACH MISC MISCELLANE PRN (09:55)
[2022-06-29] MEDS: POTASSIUM CHLORIDE ER 20 MEQ TAB.ER PO SCH ×2 (10:09→11:02)
[2022-06-29] MEDS: NICOTINE 14MG/24HR PATCH TRANSDERM SCH (10:09)
[2022-06-29 10:43] VITALS: BMI 18.8
[2022-06-29] MEDS: IPRATROPIUM-ALBUTEROL 3 ML NEB INHALATION SCH ×3 (12:12→20:48)
[2022-06-29] MEDS: BUDESONIDE 1 MG/2 ML NEBU INHALATION SCH ×2 (12:13→20:48)
[2022-06-29] MEDS ORDERED: ONDANSETRON 4 MG TAB PO PRN (14:00)
--- NOTE | 2022-06-29 19:13 | P.PN ---
Progress Note - Text Progress Note Date: 06/29/22 82-year-old the female came in with complaints of chest pain which is pleuritic in nature has been going on for last 2-3 days increases with deep breathing patient had a chest x-ray which was within normal limits and the patient had a mildly elevated d-dimer because of which the CT of the chest was obtained and there was some infiltrate in the ER is concerned about pneumonia and patient was admitted for that reason the patient was given Rocephin in ER. I reviewed the CAT scan of the chest there is a mild nonspecific infiltrate in the nodule which has grown since last imaging. No infiltrate consistent with the pneumonia Patient does have elevated white count. Patient appears to have some pulmonary edema on the CAT scan of the chest does have bilateral pedal edema patient had an EF of around 60-60% 06/29/2022: I assumed care of the patient today. Patient begun IV Lasix 20 mg for possible CHF. Chest pain is much better. Has not been out of bed." Patient has been wheezing and shortness of breath. Has a smoker. Started on nebulized Pulmicort and DuoNeb. Have the patient sit up in a chair. Active Medications Acetaminophen (Acetaminophen Tab 325 Mg Tab) 650 mg PO Q6HR PRN PRN Reason: Fever and/ or Pain Last Admin: 06/29/22 08:33 Dose: 650 mg Albuterol/Ipratropium (Ipratropium-Albuterol 3 Ml Neb) 3 ml INHALATION RT-QID [facility] Last Admin: 06/29/22 16:17 Dose: 3 ml Alprazolam (Alprazolam 0.5 Mg Tab) 0.5 mg PO Q12H PRN PRN Reason: Anxiety Last Admin: 06/28/22 20:50 Dose: 0.5 mg Aspirin (Aspirin 81 Mg) 81 mg PO DAILY [facility] Last Admin: 06/29/22 08:34 Dose: 81 mg Atenolol (Atenolol 50 Mg Tab) 50 mg PO BID [facility] Last Admin: 06/29/22 08:32 Dose: 50 mg Atorvastatin Calcium (Atorvastatin 20 Mg Tab) 20 mg PO HS [facility] Last Admin: 06/28/22 20:40 Dose: 20 mg Budesonide (Budesonide 1 Mg/2 Ml Nebu) 1 mg INHALATION RT-BID [facility] Last Admin: 06/29/22 12:13 Dose: Not Given Enoxaparin Sodium (Enoxaparin 40 Mg/0.4 Ml Syringe) 40 mg SQ DAILY [facility] Last Admin: 06/29/22 08:34 Dose: 40 mg Furosemide (Furosemide 10 Mg/Ml 2 Ml Vial) 20 mg IV Q12HR [facility] Last Admin: 06/29/22 09:07 Dose: 20 mg Hydralazine HCl (Hydralazine Hcl 25 Mg Tab) 75 mg PO TID [facility] Last Admin: 06/29/22 16:23 Dose: 75 mg Miscellaneous Information (Pneumonia Protocol Utilized 1 Each Mis) 1 each PO ONCE PRN PRN Reason: Per Protocol Miscellaneous Information (Potassium Replacement Protocol 1 Each Mis) 1 each MISCELLANE DAILY PRN; Protocol PRN Reason: Per Protocol Nicotine (Nicotine 14mg/24hr Patch) 1 patch TRANSDERM DAILY [facility] Last Admin: 06/29/22 10:09 Dose: 1 patch Nitroglycerin (Nitroglycerin Sl Tabs 0.4 Mg Tab) 0.4 mg SUBLINGUAL Q5M PRN PRN Reason: Chest Pain Ondansetron HCl (Ondansetron 4 Mg/2 Ml Vial) 4 mg IVP Q6HR PRN PRN Reason: Nausea And Vomiting On examination: VITAL SIGNS: [99.1, 79, 14, 161/75, 92% room air] GENERAL APPEARANCE: BMI 18.9, laying in bed, tired appearing HEENT: Normal external appearance of nose and ear. Oral cavity normal EYES: Pupils equal. Conjunctiva normal. NECK: JVD not raised. Mass not palpable. RESPIRATORY: Respiratory effort increased. Lungs diminished breath sound mild wheezing CARDIOVASCULAR: First and second sounds normal. No edema. ABDOMEN: Soft. Liver and spleen not palpable. No tenderness. No mass palpable. PSYCHIATRY: Alert and oriented x3. Mood and affect anxious. INVESTIGATIONS, reviewed in the clinical context: Chest x-ray: COPD changes Sodium 138 potassium 3.2 creatinine 0.69 Troponin I 0.012, 0.018, 0.019 ProBNP 537 Procalcitonin 0.06 Assessment and plan -Chest pain: appears to be musculoskeletal there is no evidence of pneumonia pulmonary embolism in the computed tomography scan troponin is negative and the check 2 more sets of troponins appears to be noncardiac chest pain. -Possible congestive heart failure chronic diastolic dysfunction with mild acute exacerbation patient was started on low-dose of Lasix. Changed to oral Lasix tomorrow -Acute COPD exacerbation in a current smoker: New diagnosis DuoNeb 4 times a day, nebulized Pulmicort -Hyperlipidemia Lipitor -Essential Hypertension Tenormin, hydralazine DVT prophylaxis: Lovenox
[2022-06-29] MEDS: ONDANSETRON 4 MG/2 ML VIAL IVP PRN (19:17)
[2022-06-29] MEDS: lisinopriL 20 MG TAB PO SCH (20:20)
[2022-06-29] MEDS: ATORVASTATIN 20 MG TAB PO SCH (20:20)
[2022-06-29] MEDS: ALPRAZolam 0.5 MG TAB PO PRN (20:23)
[2022-06-30] MEDS: hydrALAZINE HCL 25 MG TAB PO SCH ×2 (02:50→10:01)
[2022-06-30 04:07] VITALS: RESP 18
[2022-06-30 05:10] VITALS: BP 165/77
[2022-06-30] MEDS: ACETAMINOPHEN TAB 325 MG TAB PO PRN (05:45)
[2022-06-30 06:07] LABS: African American GFR (CKD) >90 (>60 ml/min/1.73 sqM); Anion Gap 6 mmol/L; Blood Urea Nitrogen 19 mg/dL (7-17); Calcium 9.2 mg/dL (8.4-10.2); Carbon Dioxide 33 mmol/L (22-30); Chloride 101 mmol/L (98-107); Glucose 110 mg/dL (74-99); Non-African American GFR(CKD) 80 (>60 ml/min/1.73 sqM); Potassium 3.9 mmol/L (3.5-5.1); Sodium 140 mmol/L (137-145)
[2022-06-30] MEDS: IPRATROPIUM-ALBUTEROL 3 ML NEB INHALATION SCH ×2 (07:48→12:28)
[2022-06-30] MEDS: BUDESONIDE 1 MG/2 ML NEBU INHALATION SCH (07:48)
[2022-06-30 08:52] VITALS: PULSE 80; TEMP 99.4
[2022-06-30] MEDS ORDERED: FUROSEMIDE 20 MG TAB PO SCH (09:00)
[2022-06-30] MEDS: ONDANSETRON 4 MG/2 ML VIAL IVP PRN (10:00)
[2022-06-30] MEDS: ENOXAPARIN 40 MG/0.4 ML SYRINGE SQ SCH (10:01)
[2022-06-30] MEDS: NICOTINE 14MG/24HR PATCH TRANSDERM SCH (10:01)
[2022-06-30] MEDS: lisinopriL 20 MG TAB PO SCH (10:02)
[2022-06-30] MEDS: atenoloL 50 MG TAB PO SCH (10:02)
[2022-06-30] MEDS: ASPIRIN 81 MG PO SCH (10:02)
[2022-06-30] MEDS: ALPRAZolam 0.5 MG TAB PO PRN (10:05)
--- NOTE | 2022-06-30 10:06 | CA ---
Transthoracic Echo Report Name: Jocelin Penn Age: 82 Gender: F : 1940 Exam Date: 06/29/2022 09:30 Exam Location: [place] [facility] Ht (in): Wt (lb): Ordering Physician: Marely Garcia MD Attending/Referring Phys: [employer] Artist Farhan Thorne RDCS Procedure CPT: Indications: Congestive heart failure Cardiac Hx: Technical Quality: Fair Contrast 1: Total Dose (mL): Contrast 2: Total Dose (mL): MEASUREMENTS (Male / Female) Normal Values 2D ECHO LV Diastolic Diameter PLAX 3.9 cm 4.2 - 5.9 / 3.9 - 5.3 cm LV Systolic Diameter PLAX 2.6 cm IVS Diastolic Thickness 1.0 cm 0.6 - 1.0 / 0.6 - 0.9 cm LVPW Diastolic Thickness 1.1 cm 0.6 - 1.0 / 0.6 - 0.9 cm LV Relative Wall Thickness 0.5 RV Internal Dim ED PLAX 2.1 cm LA Systolic Diameter LX 3.2 cm 3.0 - 4.0 / 2.7 - 3.8 cm LV Diastolic Volume MOD 4C 47.3 cm??? LV Systolic Volume MOD 4C 25.1 cm??? LV Ejection Fraction MOD 4C 46.8 % LV Diastolic Length 4C 6.5 cm LV Systolic Length 4C 5.3 cm M-MODE Aortic Root Diameter MM 2.6 cm LA Systolic Diameter MM 3.4 cm LA Ao Ratio MM 1.3 MV E Point Septal Separation 0.4 cm AV Cusp Separation MM 1.5 cm DOPPLER AV Peak Velocity 119.2 cm/s AV Peak Gradient 5.7 mmHg LVOT Peak Velocity 78.6 cm/s LVOT Peak Gradient 2.5 mmHg MV Area PHT 3.3 cm??? MR Peak Velocity 231.6 cm/s MR Peak Gradient 21.5 mmHg Mitral E Point Velocity 85.3 cm/s Mitral A Point Velocity 96.7 cm/s Mitral E to A Ratio 0.9 MV Deceleration Time 227.5 ms TR Peak Velocity 304.1 cm/s TR Peak Gradient 37.0 mmHg PV Peak Velocity 104.5 cm/s PV Peak Gradient 4.4 mmHg FINDINGS Left Ventricle Mildly increased septal wall thickness. Mildly increased posterior wall thickness. Mild concentric left ventricular hypertrophy. Left ventricular ejection fraction is estimated at 55-60 %. Right Ventricle Normal right ventricular size and function. Right ventricular systolic pressure estimated at 39.9 mm hg. Right Atrium Normal right atrial size. Left Atrium Mild left atrial dilatation. Mitral Valve Moderate thickening/calcification of the posterior mitral annulus. Mild mitral regurgitation. Aortic Valve Trileaflet aortic valve. Thickened aortic valve without stenosis. Calcification of the aortic annulus. Tricuspid Valve Moderate tricuspid regurgitation. Pulmonic Valve Structurally normal pulmonic valve. Pericardium No pericardial effusion. Aorta Normal size aortic root and proximal ascending aorta. CONCLUSIONS Normal LV systolic function ejection fraction greater than 55% mitral valve calcification Moderate tricuspid regurgitation Previewed by: Dr. Bon Yin MD (Electronically Signed) Final Date: 30 June 2022 10:05
--- NOTE | 2022-06-30 16:42 | P.DS ---
Providers Date of admission: 06/28/22 11:36 Expected date of discharge: 06/30/22 Attending physician: Yvon Romo Primary care physician: [facility] Course: 82-year-old the female came in with complaints of chest pain which is pleuritic in nature has been going on for last 2-3 days increases with deep breathing patient had a chest x-ray which was within normal limits and the patient had a mildly elevated d-dimer because of which the CT of the chest was obtained and there was some infiltrate in the ER is concerned about pneumonia and patient was admitted for that reason the patient was given Rocephin in ER. I reviewed the CAT scan of the chest there is a mild nonspecific infiltrate in the nodule which has grown since last imaging. No infiltrate consistent with the pneumonia Patient does have elevated white count. Patient appears to have some pulmonary edema on the CAT scan of the chest does have bilateral pedal edema patient had an EF of around 60-60% 06/29/2022: I assumed care of the patient today. Patient begun IV Lasix 20 mg for possible CHF. Chest pain is much better. Has not been out of bed." Patient has been wheezing and shortness of breath. Has a smoker. Started on nebulized Pulmicort and DuoNeb. Have the patient sit up in a chair. 06/30/2022: Sitting up in a chair. Feeling much better. Oral intake good. Discussed at length with the patient and . Lifestyle changes. Smoking. Questions answered. [facility] and discharge planning more than 35 minutes On examination: VITAL SIGNS: 99.4, 80, 18, 98% on 2 L GENERAL APPEARANCE: BMI 18.9, up in a recliner, comfortable HEENT: Normal external appearance of nose and ear. Oral cavity normal EYES: Pupils equal. Conjunctiva normal. NECK: JVD not raised. Mass not palpable. RESPIRATORY: Respiratory effort normal Lungs diminished breath sound CARDIOVASCULAR: First and second sounds normal. No edema. ABDOMEN: Soft. Liver and spleen not palpable. No tenderness. No mass palpable. PSYCHIATRY: Alert and oriented x3. Mood and affect anxious. INVESTIGATIONS, reviewed in the clinical context: 2-D echocardiogram: EF 55-60%. Moderate TR. June 30: Potassium 3.9 Chest x-ray: COPD changes Sodium 138 potassium 3.2 creatinine 0.69 Troponin I 0.012, 0.018, 0.019 ProBNP 537 Procalcitonin 0.06 Assessment and plan -Chest pain: appears to be musculoskeletal there is no evidence of pneumonia pulmonary embolism in the computed tomography scan troponin is negative and the check 2 more sets of troponins appears to be noncardiac chest pain. -Moderate TR -Possible congestive heart failure chronic diastolic dysfunction with mild acute exacerbation patient was started on low-dose of Lasix. Lasix 20 mg as needed day -Acute COPD exacerbation in a current smoker: Better Albuterol when necessary, Symbicort 160/4.5 one puff twice a day -Hyperlipidemia Lipitor -Essential Hypertension Tenormin, hydralazine Disposition: Home Plan - Discharge Summary New Discharge Prescriptions: New Nicotine 14Mg/24Hr Patch [Habitrol] 1 patch TRANSDERM DAILY #14 patch Furosemide [Lasix] 20 mg PO Q48H #15 tab Albuterol Sulfate [Albuterol Sulfate Hfa] 1 puff PO Q4-6H #8.5 gm Budesonide/Formoterol Fumarate [Symbicort 160-4.5 Mcg Inhaler] 1 puff INHALATION BID #10.2 gm Continue ALPRAZolam [Xanax] 0.5 mg PO Q12H PRN PRN Reason: Anxiety Lovastatin [Mevacor] 80 mg PO HS Nitroglycerin Sl Tabs [Nitrostat] 0.4 mg SUBLINGUAL Q5M PRN PRN Reason: Chest Pain Cholecalciferol [Vitamin D3 (25 Mcg = 1000 Iu)] 25 mcg PO DAILY atenoloL [Tenormin] 50 mg PO BID Aspirin EC [Ecotrin Low Dose] 81 mg PO DAILY hydrALAZINE HCL [Apresoline] 75 mg PO TID lisinopriL [Zestril] 20 mg PO BID Discontinued cloNIDine HCL [Catapres] 0.3 mg PO TID Discharge Medication List ALPRAZolam [Xanax] 0.5 mg PO Q12H PRN 05/29/14 [History] Lovastatin [Mevacor] 80 mg PO HS 04/05/17 [History] Aspirin EC [Ecotrin Low Dose] 81 mg PO DAILY 06/28/22 [History] Cholecalciferol [Vitamin D3 (25 Mcg = 1000 Iu)] 25 mcg PO DAILY 06/28/22 [History] Nitroglycerin Sl Tabs [Nitrostat] 0.4 mg SUBLINGUAL Q5M PRN 06/28/22 [History] atenoloL [Tenormin] 50 mg PO BID 06/28/22 [History] hydrALAZINE HCL [Apresoline] 75 mg PO TID 06/28/22 [History] lisinopriL [Zestril] 20 mg PO BID 06/28/22 [History] Albuterol Sulfate [Albuterol Sulfate Hfa] 1 puff PO Q4-6H #8.5 gm 06/30/22 [Rx] Budesonide/Formoterol Fumarate [Symbicort 160-4.5 Mcg Inhaler] 1 puff INHALATION BID #10.2 gm 06/30/22 [Rx] Furosemide [Lasix] 20 mg PO Q48H #15 tab 06/30/22 [Rx] Nicotine 14Mg/24Hr Patch [Habitrol] 1 patch TRANSDERM DAILY #14 patch 06/30/22 [Rx] Follow up Appointment(s)/Referral(s): Melvin Gamino DO [Primary Care Provider] - 1-2 days Discharge Disposition: HOME SELF-CARE
== END 2022-06-30 12:30 | disposition home or self-care (01) ==
LOC: EC 08:37 → 6NMEDSUR 11:36
PROVIDERS: ADMIT Hospitalist; ATTEND Hospitalist
DX: R07.89 Other chest pain (principal); R91.8 Other nonspecific abnormal finding of lung field; I10 Essential (primary) hypertension; E78.00 Pure hypercholesterolemia, unspecified; F41.9 Anxiety disorder, unspecified; F17.200 Nicotine dependence, unspecified, uncomplicated; Z79.82 Long term (current) use of aspirin; Z79.899 Other long term (current) drug therapy; Z88.1 Allergy status to other antibiotic agents; Z88.0 Allergy status to penicillin; Z88.2 Allergy status to sulfonamides; K59.09 Other constipation; Z90.49 Acquired absence of other specified parts of digestive tract; I07.1 Rheumatic tricuspid insufficiency; J44.1 Chronic obstructive pulmonary disease with (acute) exacerbation
CPT/HCPCS: 96376 ×3; 96372 ×2; 96375 ×2; 96374; 99285; 36415; 94640 ×3; 94760; 93306; 97530; 97162; 97535; 97166; 85379; 83880; 80053; 80048 ×2; 83605; 83735; 84484; 85025; 85610; 85730; 87040; 84145; 71046 ×2; 71275; G0378 ×3; S4990 ×2; J1940 ×2; J2405 ×2; J1650 ×2; J0696; Q9967

== ENCOUNTER 2022-12-06 11:14 | Emergency (ER) | payer MEDICARE ==
--- NOTE | 2022-12-06 11:59 | ED ---
General Adult HPI - General Chief complaint: Skin/Abscess/Foreign Body Stated complaint: Hit face/head Time Seen by Provider: 12/06/22 11:44 Source: patient, family, RN notes reviewed Mode of arrival: wheelchair Limitations: no limitations - History of Present Illness Initial comments: 82-year-old female with no significant past medical history presents to the emergency department with a chief complaint of rash. 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 She denies any loss of consciousness, anticoagulant use. She reports that this morning she woke up and had a rash to the left side of her face with swelling. She denies any dizziness, lightheaded, headache, vision loss, vision changes, fever, sore throat, cough, ear pain. She has not taken anything for her symptoms. - Related Data Home Medications Medication Instructions Recorded Confirmed ALPRAZolam [Xanax] 0.5 mg PO Q12H PRN 05/29/14 12/06/22 Lovastatin [Mevacor] 40 mg PO BID 04/05/17 12/06/22 Aspirin EC [Ecotrin Low Dose] 81 mg PO DAILY 06/28/22 12/06/22 Cholecalciferol [Vitamin D3 (25 25 mcg PO DAILY 06/28/22 12/06/22 Mcg = 1000 Iu)] atenoloL [Tenormin] 50 mg PO BID 06/28/22 12/06/22 hydrALAZINE HCL [Apresoline] 75 mg PO TID 06/28/22 12/06/22 lisinopriL [Zestril] 20 mg PO BID 06/28/22 12/06/22 Albuterol Sulfate [Albuterol 1 - 2 puff PO RT-Q6H PRN 12/06/22 12/06/22 Sulfate Hfa] Previous Rx's Medication Instructions Recorded valACYclovir HCL [Valacyclovir] 1,000 mg PO TID #30 tab 12/06/22 Allergies Allergy/AdvReac Type Severity Reaction Status Date / Time amoxicillin Allergy Rash/Hives Verified 12/06/22 12:10 Penicillins Allergy Rash/Hives Verified 12/06/22 12:10 ciprofloxacin [From Cipro] AdvReac stomach Verified 12/06/22 12:10 upset and dizzy sulfamethoxazole AdvReac stomach Verified 12/06/22 12:10 [From Bactrim] upset and dizzy trimethoprim [From Bactrim] AdvReac stomach Verified 12/06/22 12:10 upset and dizzy Review of Systems ROS Statement: Those systems with pertinent positive or pertinent negative responses have been documented in the HPI. ROS Other: All systems not noted in ROS Statement are negative. Past Medical History Past Medical History: Hyperlipidemia, Hypertension, Pneumonia Additional Past Medical History / Comment(s): chronic constipation History of Any Multi-Drug Resistant Organisms: None Reported Past Surgical History: Appendectomy Past Psychological History: Anxiety Smoking Status: Never smoker Past Alcohol Use History: None Reported Past Drug Use History: None Reported General Exam - General Exam Comments Initial Comments: General: Alert, in no acute distress Head: atraumatic normocephalic. Eyes PERRL, EOMI intact, mucous membranes moist Respiratory: Lungs clear to auscultation bilaterally Cardiovascular: Tachycardic Abdominal: Soft without guarding or rebound Extremities: Normal inspection with full range of motion and normal capillary refill Neuroogic: alert and oriented 3, CN II-XII intact, able to ambulate with steady gait Skin: warm dry and intact with normal color, erythematous, blistering, yellow crusted rash to left orbit and left forehead into left parietal scalp area Limitations: no limitations Course Vital Signs 12/06/22 12/06/22 11:25 16:35 Temperature 98.9 F 99.5 F Pulse Rate 104 H 79 Respiratory 20 18 Rate Blood Pressure 139/81 160/85 O2 Sat by Pulse 92 L 93 L Oximetry Medical Decision Making - Medical Decision Making Was pt. sent in by a medical professional or institution (, PA, ZOO KEEPER, urgent care, hospital, or skilled nursing...) When possible be specific @ -[No] Did you speak to anyone other than the patient for history (EMS, parent, family, police, friend...)? What history was obtained from this source @ -[No] Did you review nursing and triage notes (agree or disagree)? Why? @ -[I reviewed and agree with nursing and triage notes] Were old charts reviewed (outside hosp., previous admission, EMS record, old EKG, old radiological studies, urgent care reports/EKG's, skilled nursing records)? Report findings @ -[No old charts were reviewed] Differential Diagnosis (chest pain, altered mental status, abdominal pain women, abdominal pain men, vaginal bleeding, weakness, fever, dyspnea, syncope, headache, dizziness, GI bleed, back pain, seizure, CVA, palpatations, mental health, musculoskeletal)? @ -[not applicable] EKG interpreted by me (3pts min.). @ -[As above] X-rays interpreted by me (1pt min.). @ -[None done] CT interpreted by me (1pt min.). @ -CT head and neck negative for any intracranial process U/S interpreted by me (1pt. min.). @ -[None done] What testing was considered but not performed or refused? (CT, X-rays, U/S, labs)? Why? @ -[None] What meds were considered but not given or refused? Why? @ -[None] Did you discuss the management of the patient with other professionals (professionals i.e. , PA, ZOO KEEPER, lab, RT, psych nurse, social contact worker, nick setter, teacher, peace officer, casey saw operator)? Give summary @ -[No] Was smoking cessation discussed for >3mins.? @ -[No] Was critical care preformed (if so, how long)? @ -[No] Were there social determinants of health that impacted care today? How? (Homelessness, low income, unemployed, alcoholism, drug addiction, transportation, low edu. Level, literacy, decrease access to med. care, prison, rehab)? @ -[No] Was there de-escalation of care discussed even if they declined (Discuss DNR or withdrawal of care, Hospice)? DNR status @ -[No] What co-morbidities impacted this encounter? (DM, HTN, Smoking, COPD, CAD, Cancer, CVA, ARF, Chemo, Hep., AIDS, mental health diagnosis, sleep apnea, morbid obesity)? @ -[None] Was patient admitted / discharged? Hospital course, mention meds given and route, prescriptions, significant lab abnormalities, going to OR and other pertinent info. @ -Discharged. This is an 82-year-old female presents the emergency department with rash. Patient had a thorough history and physical exam perform ed in the ED. Left-sided face reveals a rash with vesicles and yellow crusting that is consistent with shingles. There is no evidence of dendritic lesion with was seen with fluorescin lamp evaluation. Patient had lab work and imaging which was essentially unremarkable. She was given Valtrex at a prescription for Valtrex. She was discharged in stable condition with return precautions discussed. Case discussed with RUBINA Cabrera who agrees with plan of care, Undiagnosed new problem with uncertain prognosis? @ -[No] Drug Therapy requiring intensive monitoring for toxicity (Heparin, Nitro, Insulin, Cardizem)? @ -[No] Were any procedures done? @ -[No] Diagnosis/symptom? @ -Shingles Acute, or Chronic, or Acute on Chronic? @ -Acute Uncomplicated (without systemic symptoms) or Complicated (systemic symptoms)? @ -Complicated Side effects of treatment? @ -[No] Exacerbation, Progression, or Severe Exacerbation? @ -[No] Poses a threat to life or bodily function? How? (Chest pain, [place], [place], pneumonia, PE, COPD, DKA, ARF, appy, cholecystitis, CVA, Diverticulitis, Homicidal, Suicidal, threat to staff... and all critical care pts) @ -Likely that lamp exam does not reveal any dendritic lesionslow likelihood - Lab Data Result diagrams: 12/06/22 12:15 12/06/22 12:15 Lab Results 12/06/22 12/06/22 Range/Units 12:15 12:15 WBC 5.4 (3.8-10.6) k/uL RBC 4.68 (3.80-5.40) m/uL Hgb 14.4 (11.4-16.0) gm/dL Hct 44.3 (34.0-46.0) % MCV 94.6 (80.0-100.0) fL MCH 30.8 (25.0-35.0) pg MCHC 32.6 (31.0-37.0) g/dL RDW 13.1 (11.5-15.5) % Plt Count 167 (150-450) k/uL MPV 8.2 Neutrophils % 73 % Lymphocytes % 15 % Monocytes % 8 % Eosinophils % 1 % Basophils % 1 % Neutrophils # 4.0 (1.3-7.7) k/uL Lymphocytes # 0.8 L (1.0-4.8) k/uL Monocytes # 0.4 (0-1.0) k/uL Eosinophils # 0.1 (0-0.7) k/uL Basophils # 0.1 (0-0.2) k/uL Sodium 138 (137-145) mmol/L Potassium 4.3 (3.5-5.1) mmol/L Chloride 102 (98-107) mmol/L Carbon Dioxide 30 (22-30) mmol/L Anion Gap 6 mmol/L BUN 20 H (7-17) mg/dL Creatinine 0.64 (0.52-1.04) mg/dL Est GFR (CKD-EPI)AfAm >90 (>60 ml/min/1.73 sqM) Est GFR (CKD-EPI)NonAf 83 (>60 ml/min/1.73 sqM) Glucose 107 H (74-99) mg/dL Calcium 9.0 (8.4-10.2) mg/dL Total Bilirubin 0.5 (0.2-1.3) mg/dL AST 31 (14-36) U/L ALT 17 (4-34) U/L Alkaline Phosphatase 62 (38-126) U/L Total Protein 6.6 (6.3-8.2) g/dL Albumin 3.9 (3.5-5.0) g/dL Disposition Clinical Impression: Shingles Disposition: HOME SELF-CARE Condition: Stable Additional Instructions: Return to the nearest emergency department symptoms worsen or persist Prescriptions: valACYclovir HCL [Valacyclovir] 1,000 mg PO TID #30 tab Is patient prescribed a controlled substance at d/c from ED?: No Referrals: Melvin Gamino DO [Primary Care Provider] - 1-2 days Time of Disposition: 19:29
[2022-12-06 12:26] LABS: Basophils # (A) 0.1 k/uL (0-0.2); Basophils % (A) 1 %; Eosinophils # (A) 0.1 k/uL (0-0.7); Eosinophils % (A) 1 %; HCT 44.3 % (34.0-46.0); HGB 14.4 gm/dL (11.4-16.0); Lymphocytes # (A) 0.8 k/uL (1.0-4.8); Lymphocytes % (A) 15 %; MCH 30.8 pg (25.0-35.0); MCHC 32.6 g/dL (31.0-37.0); MCV 94.6 fL (80.0-100.0); Mean Platelet Volume 8.2; Monocytes # (A) 0.4 k/uL (0-1.0); Monocytes % (A) 8 %; Neutrophils % (A) 73 %; Platelet Count 167 k/uL (150-450); RBC 4.68 m/uL (3.80-5.40); RDW 13.1 % (11.5-15.5); WBC 5.4 k/uL (3.8-10.6)
[2022-12-06 12:41] LABS: ALT 17 U/L (4-34); AST 31 U/L (14-36); African American GFR (CKD) >90 (>60 ml/min/1.73 sqM); Albumin 3.9 g/dL (3.5-5.0); Alkaline Phosphatase 62 U/L (38-126); Anion Gap 6 mmol/L; Blood Urea Nitrogen 20 mg/dL (7-17); Carbon Dioxide 30 mmol/L (22-30); Chloride 102 mmol/L (98-107); Glucose 107 mg/dL (74-99); Non-African American GFR(CKD) 83 (>60 ml/min/1.73 sqM); Potassium 4.3 mmol/L (3.5-5.1); Sodium 138 mmol/L (137-145); Total Bilirubin 0.5 mg/dL (0.2-1.3); Total Protein 6.6 g/dL (6.3-8.2)
--- NOTE | 2022-12-06 14:24 | CT ---
EXAMINATION TYPE: CT brain cspine wo con DATE OF EXAM: 12/06/2022 COMPARISON: Prior trauma CT 2013 HISTORY: fall injury with headache and neck pain. CT DLP: 1266.8 mGycm. Automated Exposure Control for Dose Reduction was Utilized. TECHNIQUE: CT scan of the head and cervical spine are performed without contrast. FINDINGS: There is no acute intracranial hemorrhage or midline shift identified. Mild ventricular a nd sulcal prominence. Moderate to severe low-attenuation in the deep and periventricular white matte r on current study. The calvarium is intact. Patchy soft tissue density or cerumen in the deep right external auditory canal axial image 19 incidentally noted. The globes are intact and the visualized s inuses are clear. Cervical spine is visualized in its entirety from C1 through upper thoracic levels and redemonstrates levoconvex scoliosis centered in the upper thoracic spine without evidence of acute fracture or disl ocation. Prevertebral soft tissue appears within normal limits. The C1-C2 articulation is within no rmal limits on the coronal images. There is slight grade 1 anterolisthesis C6 on C7 redemonstrated. Vertebral body heights are preserved. Moderate disc space narrowing C5-C6 level is redemonstrated. Sp inal canal is grossly preserved. Review of axial images shows multilevel uncovertebral facet degenera tive changes causing multilevel bilateral neural foraminal narrowing. Thyroid gland appears within no rmal limits. Lung apices show mild emphysematous change without pneumothorax. IMPRESSION: 1. There is no acute fracture or dislocation evident in the cervical spine. 2. No acute intracranial hemorrhage or midline shift is seen.
[2022-12-06] MEDS ORDERED: FLUORESCEIN STRIPS 1 MG STRIP RIGHT EYE ONE (15:33)
[2022-12-06] MEDS ORDERED: valACYclovir HCL 1,000 MG TABLET PO STA (16:05)
[2022-12-06] MEDS ORDERED: valACYclovir HCL 1,000 MG TABLET PO SCH (16:30)
[2022-12-06 16:41] VITALS: BP 160/85; PULSE 79; RESP 18; TEMP 99.5
== END 2022-12-06 16:49 | disposition home or self-care (01) ==
LOC: EC 11:14
DX: B02.9 Zoster without complications (principal); I10 Essential (primary) hypertension; E78.5 Hyperlipidemia, unspecified; F41.9 Anxiety disorder, unspecified; Z79.82 Long term (current) use of aspirin; Z79.899 Other long term (current) drug therapy; Z88.0 Allergy status to penicillin; Z88.1 Allergy status to other antibiotic agents; Z88.2 Allergy status to sulfonamides
CPT/HCPCS: 36415; 70450; 72125; 80053; 85025; 99283

== ENCOUNTER 2023-11-28 12:54 | Inpatient (IN) | payer MEDICARE ==
--- NOTE | 2023-11-28 13:19 | ED ---
General Adult HPI - General Chief complaint: Nausea/Vomiting/Diarrhea Stated complaint: Diarrhea Time Seen by Provider: 11/28/23 13:00 Source: patient, EMS, RN notes reviewed, old records reviewed Mode of arrival: EMS Limitations: no limitations - History of Present Illness Initial comments: 83-year-old female who presents to the emergency department complaining of diarrhea since yesterday. Patient states she has some abdominal cramping but the diarrhea is her main complaint. Patient denies any specific abdominal pain. Patient denies any vomiting. Patient denies any chest pain difficulty breathing or shortness of breath. Patient has any fever chills or patient has any back pain. - Related Data Home Medications Medication Instructions Recorded Confirmed ALPRAZolam [Xanax] 0.5 mg PO Q12H PRN 05/29/14 11/28/23 Lovastatin [Mevacor] 80 mg PO HS 04/05/17 11/28/23 Aspirin EC [Ecotrin Low Dose] 81 mg PO DAILY 06/28/22 11/28/23 Cholecalciferol [Vitamin D3 (25 25 mcg PO DAILY 06/28/22 11/28/23 Mcg = 1000 Iu)] atenoloL [Tenormin] 50 mg PO BID 06/28/22 11/28/23 hydrALAZINE HCL [Apresoline] 75 mg PO TID 06/28/22 11/28/23 lisinopriL [Zestril] 20 mg PO BID 06/28/22 11/28/23 Albuterol Sulfate [Albuterol 2 puff PO RT-Q4H PRN 12/06/22 11/28/23 Sulfate Hfa] Allergies Allergy/AdvReac Type Severity Reaction Status Date / Time amoxicillin Allergy Rash/Hives Verified 11/28/23 14:35 Penicillins Allergy Rash/Hives Verified 11/28/23 14:35 ciprofloxacin [From Cipro] AdvReac stomach Verified 11/28/23 14:35 upset and dizzy sulfamethoxazole AdvReac stomach Verified 11/28/23 14:35 [From Bactrim] upset and dizzy trimethoprim [From Bactrim] AdvReac stomach Verified 11/28/23 14:35 upset and dizzy Review of Systems ROS Statement: Those systems with pertinent positive or pertinent negative responses have been documented in the HPI. ROS Other: All systems not noted in ROS Statement are negative. Past Medical History Past Medical History: Hyperlipidemia, Hypertension, Pneumonia Additional Past Medical History / Comment(s): chronic constipation History of Any Multi-Drug Resistant Organisms: None Reported Past Surgical History: Appendectomy Past Psychological History: Anxiety Smoking Status: Never smoker Past Alcohol Use History: None Reported Past Drug Use History: None Reported General Exam - General Exam Comments Initial Comments: GENERAL: Patient is well-developed and well-nourished. Patient is nontoxic and well- hydrated and is in mild distress. ENT: Neck is soft and supple. No significant lymphadenopathy is noted. Oropharynx is clear. Moist mucous membranes. Neck has full range of motion without eliciting any pain. EYES: The sclera were anicteric and conjunctiva were pink and moist. Extraocular movements were intact and pupils were equal round and reactive to light. Eyelids were unremarkable. PULMONARY: Diffuse expiratory wheezing CARDIOVASCULAR: There is a regular rate and rhythm without any murmurs gallops or rubs. ABDOMEN: Soft and nontender with normal bowel sounds. Abdomen is mildly distended SKIN: Skin is clear with no lesions or rashes and otherwise unremarkable. NEUROLOGIC: Patient is alert and oriented x3. Cranial nerves II through XII are grossly intact. Motor and sensory are also intact. Normal speech, volume and content. Symmetrical smile. MUSCULOSKELETAL: Normal extremities with adequate strength and full range of motion. No lower extremity swelling or edema. No calf tenderness. LYMPHATICS: No significant lymphadenopathy is noted PSYCHIATRIC: Normal psychiatric evaluation. Limitations: no limitations Course Vital Signs 11/28/23 11/28/23 11/28/23 13:00 13:02 13:19 Temperature 97.5 F L Pulse Rate 76 Respiratory 20 24 Rate Blood Pressure 136/79 O2 Sat by Pulse 88 L 93 L Oximetry 11/28/23 11/28/23 11/28/23 13:37 13:50 15:39 Temperature Pulse Rate 75 77 100 Respiratory 18 Rate Blood Pressure 163/96 O2 Sat by Pulse 99 Oximetry Medical Decision Making - Medical Decision Making Was pt. sent in by a medical professional or institution (, PA, CREATIVE SERVICES DIRECTOR, urgent care, hospital, or group home...) When possible be specific @ -No Did you speak to anyone other than the patient for history (EMS, parent, family, police, friend...)? What history was obtained from this source @ -No Did you review nursing and triage notes (agree or disagree)? Why? @ -I reviewed and agree with nursing and triage notes Were old charts reviewed (outside hosp., previous admission, EMS record, old EKG, old radiological studies, urgent care reports/EKG's, group home records)? Report findings @ -I reviewed labs and compared to today's labs creatinine today is much higher than previous lab work Differential Diagnosis (chest pain, altered mental status, abdominal pain women, abdominal pain men, vaginal bleeding, weakness, fever, dyspnea, syncope, headache, dizziness, GI bleed, back pain, seizure, CVA, palpatations, mental health, musculoskeletal)? @ -Diarrhea, gastroenteritis, urinary tract infection, generalized weakness, this is not an all-inclusive list EKG interpreted by me (3pts min.). @ -As above X-rays interpreted by me (1pt min.). @ -None done CT interpreted by me (1pt min.). @ -None done U/S interpreted by me (1pt. min.). @ -None done What testing was considered but not performed or refused? (CT, X-rays, U/S, labs)? Why? @ -None What meds were considered but not given or refused? Why? @ -None Did you discuss the management of the patient with other professionals (professionals i.e. , PA, CREATIVE SERVICES DIRECTOR, lab, RT, psych nurse, social media intern, admiralty lawyer, teacher, loan servicing officer, case technician)? Give summary @ -[facility] the [facility] Was smoking cessation discussed for >3mins.? @ -No Was critical care preformed (if so, how long)? @ -No Were there social determinants of health that impacted care today? How? (Homelessness, low income, unemployed, alcoholism, drug addiction, transportation, low edu. Level, literacy, decrease access to med. care, group home, rehab)? @ -No Was there de-escalation of care discussed even if they declined (Discuss DNR or withdrawal of care, Hospice)? DNR status @ -No What co-morbidities impacted this encounter? (DM, HTN, Smoking, COPD, CAD, Cancer, CVA, ARF, Chemo, Hep., AIDS, mental health diagnosis, sleep apnea, morbid obesity)? @ -None Was patient admitted / discharged? Hospital course, mention meds given and route, prescriptions, significant lab abnormalities, going to OR and other pertinent info. @ -Patient's creatinine was elevated white count was elevated and patient still felt too weak to go home. Patient will be admitted to the significant hospitalist and I will write admitting orders Undiagnosed new problem with uncertain prognosis? @ -No Drug Therapy requiring intensive monitoring for toxicity (Heparin, Nitro, Insulin, Cardizem)? @ -No Were any procedures done? @ -No Diagnosis/symptom? @ -Diarrhea Acute, or Chronic, or Acute on Chronic? @ -Acute Uncomplicated (without systemic symptoms) or Complicated (systemic symptoms)? @ -Complicated Side effects of treatment? @ -No Exacerbation, Progression, or Severe Exacerbation? @ -No Poses a threat to life or bodily function? How? (Chest pain, [place], [place], pneumonia, PE, COPD, DKA, ARF, appy, cholecystitis, CVA, Diverticulitis, Homicidal, Suicidal, threat to staff... and all critical care pts) @ -No Diagnosis/symptom? @ -Renal insufficiency Acute, or Chronic, or Acute on Chronic? @ -Acute Uncomplicated (without systemic symptoms) or Complicated (systemic symptoms)? @ -Complicating Side effects of treatment? @ -None Exacerbation, Progression, or Severe Exacerbation] @ -No Poses a threat to life or bodily function? @ -Yes this can lead to electrolyte abnormalities. - Lab Data Result diagrams: 11/28/23 13:20 11/28/23 13:20 Lab Results 11/28/23 11/28/23 11/28/23 Range/Units 13:20 13:20 15:39 WBC 17.8 H (3.8-10.6) k/uL RBC 4.74 (3.80-5.40) m/uL Hgb 14.7 (11.4-16.0) gm/dL Hct 45.0 (34.0-46.0) % MCV 95.0 (80.0-100.0) fL MCH 30.9 (25.0-35.0) pg MCHC 32.6 (31.0-37.0) g/dL RDW 13.3 (11.5-15.5) % Plt Count 215 (150-450) k/uL MPV 10.0 Neutrophils % (Manual) 77 % Band Neuts % (Manual) 14 % Lymphocytes % (Manual) 3 % Monocytes % (Manual) 6 % Eosinophils % (Manual) 1 % Neutrophils # (Manual) 16.10 H (1.3-7.7) k/uL Lymphocytes # (Manual) 0.53 L (1.0-4.8) k/uL Monocytes # (Manual) 1.07 H (0-1.0) k/uL Eosinophils # (Manual) 0.18 (0-0.7) k/uL Nucleated RBCs 0 (0-0) /100 WBC Manual Slide Review Performed Sodium 134 L (137-145) mmol/L Potassium 5.6 H (3.5-5.1) mmol/L Chloride 102 (98-107) mmol/L Carbon Dioxide 19 L (22-30) mmol/L Anion Gap 13 mmol/L BUN 83 H (7-17) mg/dL Creatinine 2.19 H (0.52-1.04) mg/dL Est GFR (CKD-EPI)AfAm 23 (>60 ml/min/1.73 sqM) Est GFR (CKD-EPI)NonAf 20 (>60 ml/min/1.73 sqM) Glucose 115 H (74-99) mg/dL Calcium 8.3 L (8.4-10.2) mg/dL Total Bilirubin 1.5 H (0.2-1.3) mg/dL AST 48 H (14-36) U/L ALT 16 (4-34) U/L Alkaline Phosphatase 107 (38-126) U/L Total Protein 5.7 L (6.3-8.2) g/dL Albumin 3.3 L (3.5-5.0) g/dL Amylase 40 (30-110) U/L Lipase 33 (23-300) U/L Urine Color Dark Brown Urine Appearance Cloudy H (Clear) Urine pH 5.5 (5.0-8.0) Ur Specific [place] 1.017 (1.001-1.035) Urine Protein 1+ H (Negative) Urine Glucose (UA) Negative (Negative) Urine Ketones Trace H (Negative) Urine Blood Moderate H (Negative) Urine Nitrite Negative (Negative) Urine Bilirubin 1+ H (Negative) Urine Urobilinogen 4.0 (<2.0) mg/dL Ur Leukocyte Esterase Negative (Negative) Urine RBC 1 (0-5) /hpf Urine WBC <1 (0-5) /hpf Ur Squamous Epith Cells 2 (0-4) /hpf Amorphous Sediment Moderate H (None) /hpf Urine Mucus Rare H (None) /hpf Disposition Clinical Impression: Renal insufficiency, Diarrhea, Generalized weakness Disposition: ADMITTED IP TO THIS HOSP Referrals: Melvin Gamino DO [Primary Care Provider] - 1-2 days Time of Disposition: 18:35
[2023-11-28 13:28] LABS: HGB 14.7 gm/dL (11.4-16.0); MCH 30.9 pg (25.0-35.0); MCHC 32.6 g/dL (31.0-37.0); Platelet Count 215 k/uL (150-450); RBC 4.74 m/uL (3.80-5.40); RDW 13.3 % (11.5-15.5); WBC 17.8 k/uL (3.8-10.6)
[2023-11-28] MEDS: DIPHENOX-ATROP 2.5-0.025 MG 1 EACH TAB PO STA (13:28)
[2023-11-28] MEDS: SODIUM CHLORIDE 0.9% 1,000 ML IV STA (13:28)
[2023-11-28] MEDS: IPRATROPIUM-ALBUTEROL 3 ML NEB INHALATION STA ×2 (13:36)
[2023-11-28 13:44] LABS: ALT 16 U/L (4-34); AST 48 U/L (14-36); African American GFR (CKD) 23 (>60 ml/min/1.73 sqM); Albumin 3.3 g/dL (3.5-5.0); Alkaline Phosphatase 107 U/L (38-126); Amylase 40 U/L (30-110); Anion Gap 13 mmol/L; Blood Urea Nitrogen 83 mg/dL (7-17); Calcium 8.3 mg/dL (8.4-10.2); Carbon Dioxide 19 mmol/L (22-30); Chloride 102 mmol/L (98-107); Glucose 115 mg/dL (74-99); Lipase 33 U/L (23-300); Non-African American GFR(CKD) 20 (>60 ml/min/1.73 sqM); Potassium 5.6 mmol/L (3.5-5.1); Sodium 134 mmol/L (137-145); Total Bilirubin 1.5 mg/dL (0.2-1.3); Total Protein 5.7 g/dL (6.3-8.2)
[2023-11-28 14:11] LABS: Band Neutrophils % 14 %; Eosinophils # (M) 0.18 k/uL (0-0.7); Lymphocytes # (M) 0.53 k/uL (1.0-4.8); Monocytes # (M) 1.07 k/uL (0-1.0); Neutrophils % (M) 77 %; Nucleated Red Blood Cells 0 /100 WBC (0-0); Total Cells Counted 200
--- NOTE | 2023-11-28 14:17 | XR ---
EXAMINATION TYPE: XR chest 2V DATE OF EXAM: 11/28/2023 COMPARISON: 06/29/2022 HISTORY: Shortness of breath TECHNIQUE: Frontal and lateral views of the chest are obtained. FINDINGS: Scattered senescent parenchymal changes noted. Hyperinflation compatible with COPD. No evidence for infiltrate. No evidence for atelectasis. Heart size is stable. Mediastinal structures are stable and grossly unremarkable. No evidence for hilar prominence. Degenerative changes dorsal spine. IMPRESSION: 1. No evidence for acute pulmonary disease.
--- NOTE | 2023-11-28 14:18 | XR ---
EXAMINATION TYPE: XR KUB DATE OF EXAM: 11/28/2023 COMPARISON: 03/27/2020 HISTORY: Pain TECHNIQUE: Single supine KUB image of the abdomen is obtained FINDINGS: Mild distention of small and large bowel may reflect ileus. No definite transition point seen. No convincing evidence for pneumoperitoneum. No unusual calcifications. The lung bases are clear. The osseous structures are intact. IMPRESSION: 1. Nonspecific nonobstructive bowel gas pattern.
[2023-11-28 16:34] LABS: Amorphous Sediment,Urine Moderate /hpf; Appearance,Urine Cloudy (Clear); Bilirubin,Urine 1+ (Negative); Blood,Urine Moderate (Negative); Color,Urine Dark Brown; Glucose,Urine (UA) Negative (Negative); Ketones,Urine Trace (Negative); Leukocyte Esterase,Urine Negative (Negative); Mucus,Urine Rare /hpf; Nitrite,Urine Negative (Negative); PH, Urine 5.5 (5.0-8.0); Protein,Urine 1+ (Negative); RBC,Urine 1 /hpf (0-5); Specific Gravity,Urine 1.017 (1.001-1.035); Squamous Epithelial Cell,Urine 2 /hpf (0-4); WBC,Urine <1 /hpf (0-5)
[2023-11-28] MEDS ORDERED: ALBUTEROL NEBULIZED 2.5 MG/3 ML INHALATION PRN (19:34)
[2023-11-28] MEDS: atenoloL 50 MG TAB PO SCH (21:01)
[2023-11-28] MEDS: hydrALAZINE HCL 50 MG TAB PO SCH (21:01)
[2023-11-28] MEDS: lisinopriL 20 MG TAB PO SCH (21:01)
[2023-11-28] MEDS: SODIUM CHLORIDE 0.9% 1,000 ML IV ONE (21:13)
[2023-11-28] MEDS: ACETAMINOPHEN TAB 325 MG TAB PO PRN (21:17)
[2023-11-28] MEDS: ATORVASTATIN 20 MG TAB PO SCH (21:17)
[2023-11-29] MEDS: ASPIRIN 81 MG PO SCH (08:26)
[2023-11-29] MEDS: CHOLECALCIFEROL 25 MCG (1000 IU) TABLET PO SCH (08:27)
[2023-11-29 10:08] LABS: ALT 14 U/L (4-34); AST 38 U/L (14-36); African American GFR (CKD) 27 (>60 ml/min/1.73 sqM); Albumin 2.6 g/dL (3.5-5.0); Albumin/Globulin Ratio 1.2; Alkaline Phosphatase 100 U/L (38-126); Anion Gap 11 mmol/L; Blood Urea Nitrogen 73 mg/dL (7-17); Calcium 8.1 mg/dL (8.4-10.2); Carbon Dioxide 16 mmol/L (22-30); Chloride 110 mmol/L (98-107); Globulin 2.2 g/dL; Glucose 91 mg/dL (74-99); Magnesium 2.8 mg/dL (1.6-2.3); Non-African American GFR(CKD) 24 (>60 ml/min/1.73 sqM); Potassium 4.6 mmol/L (3.5-5.1); Sodium 137 mmol/L (137-145); Total Bilirubin 0.9 mg/dL (0.2-1.3); Total Protein 4.8 g/dL (6.3-8.2)
--- NOTE | 2023-11-29 11:40 | US ---
EXAMINATION TYPE: US kidneys/renal and bladder DATE OF EXAM: 11/29/2023 COMPARISON: XR 2023, CT 2021 CLINICAL INDICATION: Female, 83 years old with history of ADOLFO. EXAM MEASUREMENTS: Right Kidney: 10.8 x 6.0 x 3.9 cm Left Kidney: 8.3 x 3.4 x 2.9 cm Right Kidney: Prominent renal pelvis. Left Kidney: Prominent renal pelvis. Measures small, however measurement is limited. Bladder: Bladder wall appears thickened: 6 mm. *Echogenic material seen within: 5.7 x 6.8 x 4.3 cm. *Anechoic outpouching area seen right bladder measurin.8 x 2.0 x 1.0 cm - suggestive of possible diverticulum. Bilateral Jets seen: Yes Incidental finding: Gallbladder appears enlarged measuring 12.2 cm in length. *Echogenic material s een within: 7.2 x 4.0 x 1.4 cm. IMPRESSION: 1. Debris within the urinary bladder correlate with urinalysis for cystitis. 2. Cortical medullary differentiation is maintained. No evidence for obstructive uropathy. 3. Multiple bladder diverticula. 4. Biliary sludge.
--- NOTE | 2023-11-29 12:58 | P.NPCON ---
History of Present Illness - Reason for Consult acute renal failure - History of Present Illness Reason for consultation: Acute kidney injury History of present illness: Patient is 83-year-old female seen in renal consultation for acute kidney injury. Patient's creatinine in November 2022 was 0.64. This admission creatinine was elevated at 2.19 and is 1.92 today. Patient came to the hospital due to generalized weakness. Patient says she has been having diarrhea for the last 4 days. She has been having multiple bowel movements every day almost every 2 hours. Patient also vomited once prior to admission. She denies use of nonsteroidals. Denies history of diabetes. Denies history of coronary artery disease. Denies family history of renal disease. Oral intake has been poor the last few days. No edema. Denies chest pain or shortness of breath. Potassium was elevated at 5.6 and is improved to 4.6 today. However patient's acidosis is worsened bicarb level today 16. She was on lisinopril outpatient which is currently held. Denies gross hematuria. Blood pressure noted to be low in the systolic 80s to 90s on admission and improved to 119/75 as of this afternoon. She did receive a liter bolus of normal saline in the ER and is currently receiving no IV fluids. Vital signs are stable. General: No acute distress. HEENT: Head exam is unremarkable. LUNGS: No audible rhonchi or wheezes. HEART: Rate and Rhythm are regular. ABDOMEN: Nontender. EXTREMITITES: No edema. Past Medical History Past Medical History: Hyperlipidemia, Hypertension, Pneumonia Additional Past Medical History / Comment(s): chronic constipation History of Any Multi-Drug Resistant Organisms: None Reported Past Surgical History: Appendectomy Past Psychological History: Anxiety Smoking Status: Never smoker Past Alcohol Use History: None Reported Past Drug Use History: None Reported Medications and Allergies Home Medications Medication Instructions Recorded Confirmed Type ALPRAZolam [Xanax] 0.5 mg PO Q12H PRN 05/29/11/28/23 History Lovastatin [Mevacor] 80 mg PO HS 04/05/17 11/28/23 History Aspirin EC [Ecotrin Low Dose] 81 mg PO DAILY 06/28/22 11/28/23 History Cholecalciferol [Vitamin D3 (25 25 mcg PO DAILY 06/28/22 11/28/23 History Mcg = 1000 Iu)] atenoloL [Tenormin] 50 mg PO BID 06/28/22 11/28/23 History hydrALAZINE HCL [Apresoline] 75 mg PO TID 06/28/22 11/28/23 History lisinopriL [Zestril] 20 mg PO BID 06/28/22 11/28/23 History Albuterol Sulfate [Albuterol 2 puff PO RT-Q4H PRN 12/06/22 11/28/23 History Sulfate Hfa] Allergies Allergy/AdvReac Type Severity Reaction Status Date / Time amoxicillin Allergy Rash/Hives Verified 11/28/23 14:35 Penicillins Allergy Rash/Hives Verified 11/28/23 14:35 ciprofloxacin [From Cipro] AdvReac stomach Verified 11/28/23 14:35 upset and dizzy sulfamethoxazole AdvReac stomach Verified 11/28/23 14:35 [From Bactrim] upset and dizzy trimethoprim [From Bactrim] AdvReac stomach Verified 11/28/23 14:35 upset and dizzy Physical Exam Vitals: Vital Signs Temp Pulse Pulse Resp BP BP Pulse Ox 11/29/23 12:46 119/75 11/29/23 07:00 97.6 F 98 20 93/63 96 11/29/23 04:20 96/50 11/29/23 01:54 97.7 F 107 H 16 85/54 91 L 11/28/23 20:12 105 H 18 100/70 92 L 11/28/23 20:00 97.5 F L 75 16 129/75 94 L 11/28/23 18:53 60 18 105/64 97 11/28/23 15:39 100 18 163/96 99 11/28/23 13:50 77 11/28/23 13:37 75 11/28/23 13:19 24 11/28/23 13:02 93 L 11/28/23 13:00 97.5 F L 76 20 136/79 88 L Intake and Output 11/28/23 11/29/23 11/29/23 22:59 06:59 14:59 Output Total 400 428 Balance -400 -428 Output: Urine 400 Post Void Residual 428 Other: Voiding Method External Catheter External Catheter # Voids 1 1 # Bowel Movements 2 Weight 50.802 kg Results - Lab Results Most recent lab results Calcium 8.1 mg/dL (8.4-10.2) L 11/29/23 09:36 Magnesium 2.8 mg/dL (1.6-2.3) H 11/29/23 09:36 11/28/23 13:20 11/29/23 09:36 Assessment and Plan Plan: Assessment: 1. Acute kidney injury secondary to ATN secondary to hypovolemia and further worsen with the use of ALFONSO inhibitor. Creatinine 2.1 on admission and is 1.93. Creatinine in November 2022 was near 0.6. 2. Metabolic acidosis secondary to acute kidney injury, IV fluids and GI loss es. 3. Hyperkalemia secondary to acute kidney injury, lisinopril and acidosis. Improved. 4. Hypovolemia from GI losses and poor intake. C. difficile negative. 5. Benign hypertension. Currently controlled. Plan: Start bicarb drip at 75 cc an hour. Hold hydralazine for systolic blood pressure less than 120. Check renal ultrasound. Check bladder scan to rule out urinary retention. Avoid nephrotoxins. Repeat labs in the morning. Thank you for the consultation. I will continue to follow the patient with you during her hospital stay.
--- NOTE | 2023-11-29 13:25 | P.HPIM ---
History of Present Illness H&P Date: 11/29/23 History of present illness; patient 83-year-old lady with past medical history significant for hypertension, hyperlipidemia presented to the ER because of abdominal pain and diarrhea. Patient stated that she was all right 1 day back when he started having abdominal cramps that were accompanied by diarrhea. Patient states diarrhea is profuse, stools are very foul-smelling. No evidence of any blood in it. Denies any nausea or vomiting. Patient denies any recent sick contacts or use of any antibiotics. There is no complaint of chest pain or shortness of breath. Because of this abdominal pain and diarrhea patient came to the ER Initial lab work done in the ER showed WBC 17.8, hemoglobin 14.7, platelet count 215, sodium 134, potassium 5.6, BUN 83, creatinine 2.19, Glucose 115, calcium 8.3, bilirubin 1.5, AST 1.5, albumin 3.3 UA done showed urine blood moderate amount bilirubin 1+, leukocyte Estrace negative Chest x-ray done in the ERShowed no evidence of acute cardiopulmonary process X-ray KUB done showed nonspecific nonobstructive bowel gas pattern Patient admitted to internal medicine service REVIEW OF SYSTEMS: CONSTITUTIONAL: No fever, no malaise, no fatigue. HEENT: No recent visual problems or hearing problems. Denied any sore throat. CARDIOVASCULAR: No chest pain, orthopnea, PND, no palpitations, no syncope. PULMONARY: No shortness of breath, no cough, no hemoptysis. GASTROINTESTINAL: As mentioned above NEUROLOGICAL: No headaches, no weakness, no numbness. HEMATOLOGICAL: Denies any bleeding or petechiae. GENITOURINARY: Denies any burning micturition, frequency, or urgency. MUSCULOSKELETAL/RHEUMATOLOGICAL: Denies any joint pain, swelling, or any muscle pain. ENDOCRINE: Denies any polyuria or polydipsia. The rest of the 14-point review of systems is negative. PHYSICAL EXAMINATION: GENERAL: The patient is alert and oriented x3, not in any acute distress. Well developed, well nourished. HEENT: Pupils are round and equally reacting to light. EOMI. No scleral icterus. No conjunctival pallor. Normocephalic, atraumatic. No pharyngeal erythema. No thyromegaly. CARDIOVASCULAR: S1 and S2 present. No murmurs, rubs, or gallops. PULMONARY: Chest is clear to auscultation, no wheezing or crackles. ABDOMEN: Soft, nontender, nondistended, normoactive bowel sounds. No palpable organomegaly. MUSCULOSKELETAL: No joint swelling or deformity. EXTREMITIES: No cyanosis, clubbing, or pedal edema. NEUROLOGICAL: Gross neurological examination did not reveal any focal deficits. SKIN: No rashes. Assessment and plan hyponatremia hyperkalemia Acute kidney injury Diarrhea Abdominal pain hypertension hyperlipidemia Monitor vital signs Monitor CBC Monitor CMP Continue telemetry monitoring Avoid nephrotoxic agents Ordered ultrasound of kidneys Order urine lites Continue IV fluids Ordered stool cultures Ordered stool for C. difficile Consult nephrology Labs and medication were reviewed.. Continue same treatment. Continue with symptomatic treatment. Resume home medication. Monitor labs and vitals. DVT and GI prophylaxis. Further recommendations as per clinical course of the patient Dictation was produced using [employer] dictation software. please excuse any grammatical, word or spelling errors. Past Medical History Past Medical History: Hyperlipidemia, Hypertension, Pneumonia Additional Past Medical History / Comment(s): chronic constipation History of Any Multi-Drug Resistant Organisms: None Reported Past Surgical History: Appendectomy Past Psychological History: Anxiety Smoking Status: Never smoker Past Alcohol Use History: None Reported Past Drug Use History: None Reported Medications and Allergies Home Medications Medication Instructions Recorded Confirmed Type ALPRAZolam [Xanax] 0.5 mg PO Q12H PRN 05/29/14 11/28/23 History Lovastatin [Mevacor] 80 mg PO HS 04/05/17 11/28/23 History Aspirin EC [Ecotrin Low Dose] 81 mg PO DAILY 06/28/22 11/28/23 History Cholecalciferol [Vitamin D3 (25 25 mcg PO DAILY 06/28/22 11/28/23 History Mcg = 1000 Iu)] atenoloL [Tenormin] 50 mg PO BID 06/28/22 11/28/23 History hydrALAZINE HCL [Apresoline] 75 mg PO TID 06/28/22 11/28/23 History lisinopriL [Zestril] 20 mg PO BID 06/28/22 11/28/23 History Albuterol Sulfate [Albuterol 2 puff PO RT-Q4H PRN 12/06/22 11/28/23 History Sulfate Hfa] Allergies Allergy/AdvReac Type Severity Reaction Status Date / Time amoxicillin Allergy Rash/Hives Verified 11/28/23 14:35 Penicillins Allergy Rash/Hives Verified 11/28/23 14:35 ciprofloxacin [From Cipro] AdvReac stomach Verified 11/28/23 14:35 upset and dizzy sulfamethoxazole AdvReac stomach Verified 11/28/23 14:35 [From Bactrim] upset and dizzy trimethoprim [From Bactrim] AdvReac stomach Verified 11/28/23 14:35 upset and dizzy Physical Exam Vitals: Vital Signs Temp Pulse Pulse Resp BP BP Pulse Ox 11/29/23 07:00 97.6 F 98 20 93/63 96 11/29/23 04:20 96/50 11/29/23 01:54 97.7 F 107 H 16 85/54 91 L 11/28/23 20:12 105 H 18 100/70 92 L 11/28/23 20:00 97.5 F L 75 16 129/75 94 L 11/28/23 18:53 60 18 105/64 97 11/28/23 15:39 100 18 163/96 99 11/28/23 13:50 77 11/28/23 13:37 75 11/28/23 13:19 24 11/28/23 13:02 93 L 11/28/23 13:00 97.5 F L 76 20 136/79 88 L Intake and Output 11/28/23 11/29/23 11/29/23 22:59 06:59 14:59 Output Total 400 Balance -400 Output: Urine 400 Other: Voiding Method External Catheter External Catheter # Voids 1 Weight 50.802 kg Results CBC & Chem 7: 11/28/23 13:20 11/28/23 13:20 Labs: Abnormal Lab Results - Last 24 Hours (Table) 11/28/23 11/28/23 11/28/23 Range/Units 13:20 13:20 15:39 WBC 17.8 H (3.8-10.6) k/uL Neutrophils # (Manual) 16.10 H (1.3-7.7) k/uL Lymphocytes # (Manual) 0.53 L (1.0-4.8) k/uL Monocytes # (Manual) 1.07 H (0-1.0) k/uL Sodium 134 L (137-145) mmol/L Potassium 5.6 H (3.5-5.1) mmol/L Carbon Dioxide 19 L (22-30) mmol/L BUN 83 H (7-17) mg/dL Creatinine 2.19 H (0.52-1.04) mg/dL Glucose 115 H (74-99) mg/dL Calcium 8.3 L (8.4-10.2) mg/dL Total Bilirubin 1.5 H (0.2-1.3) mg/dL AST 48 H (14-36) U/L Total Protein 5.7 L (6.3-8.2) g/dL Albumin 3.3 L (3.5-5.0) g/dL Urine Appearance Cloudy H (Clear) Urine Protein 1+ H (Negative) Urine Ketones Trace H (Negative) Urine Blood Moderate H (Negative) Urine Bilirubin 1+ H (Negative) Amorphous Sediment Moderate H (None) /hpf Urine Mucus Rare H (None) /hpf
[2023-11-29] MEDS: DEXTROSE 5% IN WATER 1,000 ML with SODIUM BICARB (1 MEQ/ML) 150 ML IV SCH (14:06)
[2023-11-29 15:54] LABS: Basophils # (A) 0.01 X 10*3/uL (0.00-0.10); Basophils % (A) 0.1 %; Crenated RBC 3+; Eosinophils # (A) 0.06 X 10*3/uL (0.04-0.35); Eosinophils % (A) 0.4 %; HCT 42.4 % (37.2-46.3); HGB 13.6 g/dL (12.0-15.0); Lymphocytes # (A) 0.37 X 10*3/uL (0.90-5.00); Lymphocytes % (A) 2.6 %; MCH 30.6 pg (27.0-32.0); MCHC 32.1 g/dL (32.0-37.0); MCV 95.3 FL (80.0-97.0); Mean Platelet Volume 12.6 FL (9.5-12.2); Monocytes # (A) 0.84 X 10*3/uL (0.20-1.00); Monocytes % (A) 5.9 %; NRBC Per 100 WBC 0 X 10*3/uL (0.00-0.01); Neutrophils # (A) 12.67 X 10*3/uL (1.80-7.70); Neutrophils % (A) 89.2 %; Platelet Count 205 X 10*3/uL (140-440); RBC 4.45 X 10*6/uL (4.10-5.20); RDW 13.5 % (11.5-14.5)
[2023-11-29] MEDS: LACTOBACILLUS ACIDOPHILUS/PECT 1 EACH CAPSULE PO SCH (16:47)
[2023-11-30] MEDS ORDERED: hydrALAZINE HCL 20 MG/ML 1 ML VIAL IVP PRN (10:05)
--- NOTE | 2023-11-30 10:06 | P.PN ---
Subjective Patient is seen in follow-up for acute kidney injury. Maintained on bicarb drip. Nonoliguric. Has Minor catheter. Still having loose bowel movements. Oral intake poor. present at bedside. Vital signs are stable. General: No acute distress. HEENT: Head exam is unremarkable. LUNGS: No audible rhonchi or wheezes. HEART: Rate and Rhythm are regular. ABDOMEN: Nontender. EXTREMITITES: No edema. Objective - Vital Signs Vital signs: Vital Signs Temp 97.9 F 11/30/23 07:00 Pulse 68 11/30/23 07:00 Resp 18 11/30/23 07:00 BP 158/99 11/30/23 07:00 Pulse Ox 98 11/30/23 08:21 FiO2 Intake & Output 11/29/23 11/30/23 11/30/23 18:59 06:59 18:59 Intake Total 720 118 Output Total 428 650 Balance 292 -650 118 Intake: Oral 720 118 Output: Urine 650 Post Void Residual 428 Other: Voiding Method Indwelling Catheter # Voids 1 # Bowel Movements 2 1 - Labs CBC & Chem 7: 11/29/23 09:36 11/29/23 09:36 Labs: Abnormal Lab Results - Last 24 Hours (Table) 11/29/23 11/29/23 11/29/23 Range/Units 09:36 09:36 17:55 WBC 14.20 H (4.50-10.00) X 10*3/uL MPV 12.6 H (9.5-12.2) FL Immature Gran # 0.25 H (0.00-0.04) X 10*3/uL Neutrophils # 12.67 H (1.80-7.70) X 10*3/uL Lymphocytes # 0.37 L (0.90-5.00) X 10*3/uL Crenated Cell 3+ A Chloride 110 H (98-107) mmol/L Carbon Dioxide 16 L (22-30) mmol/L BUN 73 H (7-17) mg/dL Creatinine 1.92 H (0.52-1.04) mg/dL Osmolality 315 H (275-295) mOsm/kg Calcium 8.1 L (8.4-10.2) mg/dL Magnesium 2.8 H (1.6-2.3) mg/dL AST 38 H (14-36) U/L Total Protein 4.8 L (6.3-8.2) g/dL Albumin 2.6 L (3.5-5.0) g/dL Ur Random Sodium <20 L (40-220) mmol/L Microbiology - Last 24 Hours (Table) 11/29/23 09:29 Stool Culture - Preliminary Stool Assessment and Plan Plan: Assessment: 1. Acute kidney injury secondary to ATN secondary to hypovolemia and further worsen with the use of ALFONSO inhibitor. Creatinine 2.1 on admission -1.92 yesterday. Creatinine in November 2022 was near 0.6. No hydronephrosis noted on kidney ultrasound. Right kidney atrophic. 2. Metabolic acidosis secondary to acute kidney injury, IV fluids and GI losses. On bicarb drip. 3. Hyperkalemia secondary to acute kidney injury, lisinopril and acidosis. Improved. 4. Hypovolemia from GI losses and poor intake. C. difficile negative. 5. Benign hypertension. Plan: Maintain bicarb drip for now. Add as needed hydralazine. Avoid nephrotoxins. Follow-up morning labs.
[2023-11-30 12:00] LABS: African American GFR (CKD) 60 (>60 ml/min/1.73 sqM); Anion Gap 3 mmol/L; Blood Urea Nitrogen 50 mg/dL (7-17); Calcium 7.9 mg/dL (8.4-10.2); Carbon Dioxide 30 mmol/L (22-30); Chloride 105 mmol/L (98-107); Glucose 119 mg/dL (74-99); Magnesium 2.4 mg/dL (1.6-2.3); Non-African American GFR(CKD) 52 (>60 ml/min/1.73 sqM); Potassium 3.7 mmol/L (3.5-5.1); Sodium 138 mmol/L (137-145)
--- NOTE | 2023-11-30 15:11 | P.PN ---
Progress Note - Text Progress Note Date: 11/30/23 History of present illness; patient 83-year-old lady with past medical history significant for hypertension, hyperlipidemia presented to the ER because of abdominal pain and diarrhea. Patient stated that she was all right 1 day back when he started having abdominal cramps that were accompanied by diarrhea. Patient states diarrhea is profuse, stools are very foul-smelling. No evidence of any blood in it. Denies any nausea or vomiting. Patient denies any recent sick contacts or use of any antibiotics. There is no complaint of chest pain or shortness of breath. Because of this abdominal pain and diarrhea patient came to the ER Initial lab work done in the ER showed WBC 17.8, hemoglobin 14.7, platelet count 215, sodium 134, potassium 5.6, BUN 83, creatinine 2.19, Glucose 115, calcium 8.3, bilirubin 1.5, AST 1.5, albumin 3.3 UA done showed urine blood moderate amount bilirubin 1+, leukocyte Estrace negative Chest x-ray done in the ERShowed no evidence of acute cardiopulmonary process X-ray KUB done showed nonspecific nonobstructive bowel gas pattern Patient admitted to internal medicine service November 29: Patient had 1 bowel movement earlier. Family at the bedside. Patient not keen for hospital food. Did feed the patient few teaspoons of ham. A bit tired. Getting gentle hydration. Active Medications Acetaminophen (Acetaminophen Tab 325 Mg Tab) 650 mg PO Q6HR PRN PRN Reason: Fever and/ or Pain Last Admin: 11/28/23 21:17 Dose: 650 mg Albuterol Sulfate (Albuterol Nebulized 2.5 Mg/3 Ml) 2.5 mg INHALATION RT-Q4H PRN PRN Reason: Shortness Of Breath Alprazolam (Alprazolam 0.5 Mg Tab) 0.5 mg PO Q12H PRN PRN Reason: Anxiety Aspirin (Aspirin 81 Mg) 81 mg PO DAILY [facility] Last Admin: 11/30/23 08:35 Dose: 81 mg Atenolol (Atenolol 50 Mg Tab) 50 mg PO BID [facility] Last Admin: 11/30/23 08:35 Dose: 50 mg Atorvastatin Calcium (Atorvastatin 20 Mg Tab) 20 mg PO HS [facility] Last Admin: 11/29/23 20:37 Dose: 20 mg Cholecalciferol (Cholecalciferol 25 Mcg (1000 Iu) Tablet) 25 mcg PO DAILY [facility] Last Admin: 11/30/23 08:36 Dose: 25 mcg Hydralazine HCl (Hydralazine Hcl 50 Mg Tab) 75 mg PO TID [facility] Last Admin: 11/30/23 08:35 Dose: 75 mg Hydralazine HCl (Hydralazine Hcl 20 Mg/Ml 1 Ml Vial) 10 mg IVP Q6HR PRN PRN Reason: Blood Pressure - High Sodium Bicarbonate 150 ml/ (Dextrose/Water) 1,150 mls @ 80 mls/hr IV .[id number] [facility] Last Admin: 11/30/23 01:36 Dose: 80 mls/hr Lactobacillus Acidophilus (Lactobacillus Acidophilus/Pect 1 Each Capsule) 1 each PO TID [facility] Last Admin: 11/30/23 08:35 Dose: 1 each Loperamide HCl (Loperamide 2 Mg Cap) 2 mg PO QID PRN PRN Reason: Diarrhea On examination: VITAL SIGNS: [97.8, 73, 16, 115/65, 93% room air] GENERAL APPEARANCE: BMI 22.6, resting in bed tired. HEENT: Normal external appearance of nose and ear. Oral cavity normal EYES: Pupils equal. Conjunctiva normal. NECK: JVD not raised. Mass not palpable. RESPIRATORY: Respiratory effort normal. Lungs clear to auscultation. CARDIOVASCULAR: First and second sounds normal. No edema. ABDOMEN: Soft. Liver and spleen not palpable. No tenderness. No mass palpable. PSYCHIATRY: Alert and oriented x3. Mood and affect anxious INVESTIGATIONS, reviewed in the clinical context: November 29: Potassium 3.7 creatinine 1.01 November 28: White count 14.2 hemoglobin 13.6 platelets 205. Creatinine 1.92 bicarb 16 C. difficile: Negative November 27: Creatinine 2.19 potassium 5.6 Assessment and plan: -Mild hyponatremia: Better -Hyperkalemia, corrected -Acute kidney injury, likelyATN secondary to hypovolemia -Acute diarrhea: Improving ATN from hypovolemia from diarrhea and also worsening with ALFONSO inhibitor: Better Chopped diet -Right kidney atrophic -Metabolic acidosis secondary acute kidney injury Patient received bicarbonate drip -Hypertension Hydralazine. Lisinopril discontinued -Hyperlipidemia Lipitor -Anxiety Xanax as needed -DNR Continue IV fluids today. Discussed with family. Encourage oral intake. Past Medical History Past Medical History: Hyperlipidemia, Hypertension, Pneumonia Additional Past Medical History / Comment(s): chronic constipation History of Any Multi-Drug Resistant Organisms: None Reported Past Surgical History: Appendectomy Past Psychological History: Anxiety Smoking Status: Never smoker Past Alcohol Use History: None Reported Past Drug Use History: None Reported
[2023-11-30] MEDS: SODIUM CHLORIDE 0.9% 1,000 ML IV SCH (17:17)
[2023-11-30] MEDS: ALPRAZolam 0.5 MG TAB PO PRN (20:42)
[2023-11-30] MEDS: LOPERAMIDE 2 MG CAP PO PRN (20:43)
[2023-12-01 11:03] LABS: BUN/Creat Ratio 33.78 Ratio (12.00-20.00); Blood Urea Nitrogen 30.4 mg/dL (9.0-27.0); Calcium 7.9 mg/dL (8.7-10.3); Carbon Dioxide 33.1 mmol/L (21.6-31.8); Chloride 102 mmol/L (96-109); Glucose 112 mg/dL (70-110); Potassium 3.5 mmol/L (3.5-5.5); Sodium 144 mmol/L (135-145)
--- NOTE | 2023-12-01 12:06 | P.PN ---
Subjective Patient is seen in follow-up for acute kidney injury. Maintained on normal saline. Nonoliguric. Has Minor catheter. Diarrhea improved. Tolerating oral intake. Vital signs are stable. General: No acute distress. HEENT: Head exam is unremarkable. LUNGS: No audible rhonchi or wheezes. HEART: Rate and Rhythm are regular. ABDOMEN: Nontender. EXTREMITITES: No edema. Objective - Vital Signs Vital signs: Vital Signs Temp 99.9 F H 12/01/23 07:13 Pulse 69 12/01/23 07:13 Resp 18 12/01/23 07:13 BP 149/78 12/01/23 07:13 Pulse Ox 97 12/01/23 07:13 FiO2 Intake & Output 11/30/23 12/01/23 12/01/23 18:59 06:59 18:59 Intake Total 236 Output Total 675 Balance 236 -675 Intake: Oral 236 Output: Urine 675 Other: Voiding Method Indwelling Catheter Indwelling Catheter Indwelling Catheter # Bowel Movements 2 - Labs CBC & Chem 7: 11/29/23 09:36 12/01/23 07:28 Labs: Abnormal Lab Results - Last 24 Hours (Table) 11/29/23 12/01/23 Range/Units 23:57 07:28 Carbon Dioxide 33.1 H (21.6-31.8) mmol/L BUN 30.4 H (9.0-27.0) mg/dL BUN/Creatinine Ratio 33.78 H (12.00-20.00) Ratio Glucose 112 H (70-110) mg/dL Calcium 7.9 L (8.7-10.3) mg/dL Stool Lactoferrin Positive A (Negative) Microbiology - Last 24 Hours (Table) 11/29/23 09:29 Stool Culture - Preliminary Stool Assessment and Plan Plan: Assessment: 1. Acute kidney injury secondary to ATN secondary to hypovolemia and further worsen with the use of ALFONSO inhibitor. Creatinine 2.1 on admission - improved to 0.9 today. Creatinine in November 2022 was near 0.6. No hydronephrosis noted on kidney ultrasound. Right kidney atrophic. 2. Metabolic acidosis secondary to acute kidney injury, IV fluids and GI losses. Status post bicarb drip. Resolved. 3. Hyperkalemia secondary to acute kidney injury, lisinopril and acidosis. Improved. 4. Hypovolemia from GI losses and poor intake. C. difficile negative. 5. Benign hypertension. Stable. Plan: Encouraged oral intake. Maintain gentle IV hydration. Avoid nephrotoxins.
[2023-12-01 14:47] VITALS: BP 89/59; PULSE 78; RESP 17; TEMP 98.1
--- NOTE | 2023-12-01 16:36 | P.DS ---
Providers Date of admission: 11/28/23 18:50 Expected date of discharge: 12/01/23 Attending physician: Yvon Romo Consults: 11/29/23 09:27 Consult Physician Routine Consulting Provider: Radha Gibson Consult Reason/Comments: Acute kidney injury, hyperkalemia Do you want consulting provider notified?: Yes Primary care physician: [facility] Course: History of present illness; patient 83-year-old lady with past medical history significant for hypertension, hyperlipidemia presented to the ER because of abdominal pain and diarrhea. Patient stated that she was all right 1 day back when he started having abdominal cramps that were accompanied by diarrhea. Patient states diarrhea is profuse, stools are very foul-smelling. No evidence of any blood in it. Denies any nausea or vomiting. Patient denies any recent sick contacts or use of any antibiotics. There is no complaint of chest pain or shortness of breath. Because of this abdominal pain and diarrhea patient came to the ER Initial lab work done in the ER showed WBC 17.8, hemoglobin 14.7, platelet count 215, sodium 134, potassium 5.6, BUN 83, creatinine 2.19, Glucose 115, calcium 8.3, bilirubin 1.5, AST 1.5, albumin 3.3 UA done showed urine blood moderate amount bilirubin 1+, leukocyte Estrace negative Chest x-ray done in the ERShowed no evidence of acute cardiopulmonary process X-ray KUB done showed nonspecific nonobstructive bowel gas pattern Patient admitted to internal medicine service November 29: Patient had 1 bowel movement earlier. Family at the bedside. Patient not keen for hospital food. Did feed the patient few teaspoons of ham. A bit tired. Getting gentle hydration. November 30: Oral intake good. No new issues. Discussed. Stable for discharge at pulse ox was assessed. Pulse ox checks with activity. 98% room air. Discharge was discussed with the patient . Doing fairly well with ambulation. She prefers to go home. Counseled about smoking Discussion and discharge planning more than 35 minutes On examination: VITAL SIGNS: 98.1, 78, 17, 89 x 59, 98% room air GENERAL APPEARANCE: BMI 22.6, resting in bed tired. HEENT: Normal external appearance of nose and ear. Oral cavity normal EYES: Pupils equal. Conjunctiva normal. NECK: JVD not raised. Mass not palpable. RESPIRATORY: Respiratory effort normal. Lungs clear to auscultation. CARDIOVASCULAR: First and second sounds normal. No edema. ABDOMEN: Soft. Liver and spleen not palpable. No tenderness. No mass palpable. PSYCHIATRY: Alert and oriented x3. Mood and affect anxious INVESTIGATIONS, reviewed in the clinical context: November 30: Potassium 3.5 creatinine 0.9 November 29: Potassium 3.7 creatinine 1.01 November 28: White count 14.2 hemoglobin 13.6 platelets 205. Creatinine 1.92 bicarb 16 C. difficile: Negative November 27: Creatinine 2.19 potassium 5.6 Assessment and plan: -Mild hyponatremia: Better -Hyperkalemia, corrected -Acute kidney injury, likelyATN secondary to hypovolemia: Corrected -Acute diarrhea: Improving ATN from hypovolemia from diarrhea and also worsening with ALFONSO inhibitor: Better Chopped diet tolerated -Right kidney atrophic -Metabolic acidosis secondary acute kidney injury Patient received bicarbonate drip -Hypertension Hydralazine increased to 100 mg 3 times daily. Lisinopril discontinued -Hyperlipidemia Lipitor -Anxiety Xanax as needed -DNR Disposition: Home Past Medical History Past Medical History: Hyperlipidemia, Hypertension, Pneumonia Additional Past Medical History / Comment(s): chronic constipation History of Any Multi-Drug Resistant Organisms: None Reported Past Surgical History: Appendectomy Past Psychological History: Anxiety Smoking Status: Never smoker Past Alcohol Use History: None Reported Past Drug Use History: None Reported Plan - Discharge Summary New Discharge Prescriptions: New hydrALAZINE HCL [Apresoline] 100 mg PO TID #90 tab Continue ALPRAZolam [Xanax] 0.5 mg PO Q12H PRN PRN Reason: Anxiety Lovastatin [Mevacor] 80 mg PO HS Cholecalciferol [Vitamin D3 (25 Mcg = 1000 Iu)] 25 mcg PO DAILY atenoloL [Tenormin] 50 mg PO BID Aspirin EC [Ecotrin Low Dose] 81 mg PO DAILY Albuterol Sulfate [Albuterol Sulfate Hfa] 2 puff PO RT-Q4H PRN PRN Reason: Shortness Of Breath Discontinued hydrALAZINE HCL [Apresoline] 75 mg PO TID No Action lisinopriL [Zestril] 20 mg PO BID Discharge Medication List ALPRAZolam [Xanax] 0.5 mg PO Q12H PRN 05/29/14 [History] Lovastatin [Mevacor] 80 mg PO HS 04/05/17 [History] Aspirin EC [Ecotrin Low Dose] 81 mg PO DAILY 06/28/22 [History] Cholecalciferol [Vitamin D3 (25 Mcg = 1000 Iu)] 25 mcg PO DAILY 06/28/22 [History] atenoloL [Tenormin] 50 mg PO BID 06/28/22 [History] lisinopriL [Zestril] 20 mg PO BID 06/28/22 [History] Albuterol Sulfate [Albuterol Sulfate Hfa] 2 puff PO RT-Q4H PRN 12/06/22 [History] hydrALAZINE HCL [Apresoline] 100 mg PO TID #90 tab 12/01/23 [Rx] Follow up Appointment(s)/Referral(s): Melvin Gamino DO [Primary Care Provider] - 1-2 days (office will call with appointment time) Bin Griffiths DO [STAFF PHYSICIAN] - 1 Week (office will call with appointment time) Patient Instructions/Handouts: Dehydration (DC), Acute Kidney Injury (DC), Low Fiber Diet (DC), How to Take a Blood Pressure (DC), Diverticulitis Diet (DC), Pulse Oximetry (DC)
== END 2023-12-01 16:48 | disposition home or self-care (01) | DRG 640 ==
LOC: EC 12:54 → 6NMEDSUR 18:49 → OBSVTOIN 18:50 → 6NMEDSUR 19:58 → 1SOBS 11-29 18:45 → 4SSUR 11-30 16:45
PROVIDERS: ADMIT Hospitalist; ATTEND Hospitalist
DX: E86.1 Hypovolemia (principal); N17.0 Acute kidney failure with tubular necrosis; R19.7 Diarrhea, unspecified; E87.1 Hypo-osmolality and hyponatremia; E87.20 Acidosis, unspecified; Z66 Do not resuscitate; E78.5 Hyperlipidemia, unspecified; E87.5 Hyperkalemia; I10 Essential (primary) hypertension; T46.4X5A Adverse effect of angiotensin-converting-enzyme inhibitors, initial encounter; F41.9 Anxiety disorder, unspecified; N26.1 Atrophy of kidney (terminal); Z87.01 Personal history of pneumonia (recurrent); K59.09 Other constipation; Z79.82 Long term (current) use of aspirin; Z71.6 Tobacco abuse counseling; Z79.899 Other long term (current) drug therapy; Z88.1 Allergy status to other antibiotic agents; X58.XXXA Exposure to other specified factors, initial encounter; Z88.2 Allergy status to sulfonamides; Z88.0 Allergy status to penicillin
CPT/HCPCS: 36415; 51798; 71046; 74018; 76770; 80048; 80053; 81001; 82150; 82570; 83630; 83690; 83735; 83930; 83935; 84300; 85025; 87045; 87046; 87205; 87324; 94640; 94760; 99285

== ENCOUNTER → 2024-05-27 | Outpatient (CLI) | payer MEDICARE ==
[2024-05-27 19:41] LABS: Basophils # (A) 0.08 X 10*3/uL (0.00-0.10); Basophils % (A) 0.8 %; Eosinophils # (A) 0.34 X 10*3/uL (0.04-0.35); Eosinophils % (A) 3.3 %; HCT 42.2 % (37.2-46.3); HGB 12.7 g/dL (12.0-15.0); Lymphocytes # (A) 2.27 X 10*3/uL (0.90-5.00); Lymphocytes % (A) 21.8 %; MCH 28.5 pg (27.0-32.0); MCHC 30.1 g/dL (32.0-37.0); MCV 94.6 FL (80.0-97.0); Mean Platelet Volume 10.9 FL (9.5-12.2); Monocytes # (A) 0.74 X 10*3/uL (0.20-1.00); Monocytes % (A) 7.1 %; NRBC Per 100 WBC 0 X 10*3/uL (0.00-0.01); Neutrophils # (A) 6.94 X 10*3/uL (1.80-7.70); Neutrophils % (A) 66.7 %; Platelet Count 372 X 10*3/uL (140-440); RBC 4.46 X 10*6/uL (4.10-5.20)
[2024-05-27 19:51] LABS: ALT 12 U/L (8-44); AST 21 U/L (13-35); Albumin 4.1 g/dL (3.8-4.9); Albumin/Globulin Ratio 1.41 Ratio (1.60-3.17); Alkaline Phosphatase 81 U/L (41-126); Amylase 67 U/L (23-121); BUN/Creat Ratio 24.29 Ratio (12.00-20.00); Calcium 9.4 mg/dL (8.7-10.3); Carbon Dioxide 28.3 mmol/L (21.6-31.8); Chloride 102 mmol/L (96-109); Globulin 2.9 g/dL (1.6-3.3); Glucose 111 mg/dL (70-110); Lipase 38 U/L (14-63); Potassium 4.1 mmol/L (3.5-5.5); Sodium 142 mmol/L (135-145); T4, Free (Free Thyroxine) 0.97 ng/dL (0.80-1.80); Total Bilirubin 0.2 mg/dL (0.3-1.2)
== END | disposition home or self-care (01) ==
LOC: LABWHC1 13:58
PROVIDERS: ATTEND Family Medicine
DX: M85.80 Other specified disorders of bone density and structure, unspecified site (principal); N17.0 Acute kidney failure with tubular necrosis; R63.4 Abnormal weight loss
CPT/HCPCS: 36415; 80053; 82150; 82306; 83690; 84439; 84443; 85025

== ENCOUNTER → 2024-12-09 | Outpatient (CLI) | payer MEDICARE ==
[2024-12-09 15:53] LABS: HGB 10.4 g/dL (12.0-15.0); MCH 23.7 pg (27.0-32.0); MCHC 28.9 g/dL (32.0-37.0); MCV 82.2 FL (80.0-97.0); Mean Platelet Volume 10.8 FL (9.5-12.2); NRBC Per 100 WBC 0 X 10*3/uL (0.00-0.01); Platelet Count 351 X 10*3/uL (140-440); RBC 4.38 X 10*6/uL (4.10-5.20); RDW 16.6 % (11.5-14.5); WBC 9.41 X 10*3/uL (4.50-10.00)
[2024-12-09 16:25] LABS: Chol/HDL Ratio 2.11 Ratio; LDL Cholesterol,Calculated 69.6 mg/dL (0.0-131.0)
[2024-12-09 16:26] LABS: ALT 15 U/L (8-44); AST 25 U/L (13-35); Albumin 4.3 g/dL (3.8-4.9); Albumin/Globulin Ratio 1.95 Ratio (1.60-3.17); Alkaline Phosphatase 62 U/L (41-126); BUN/Creat Ratio 23.43 Ratio (12.00-20.00); Blood Urea Nitrogen 16.4 mg/dL (9.0-27.0); Calcium 9.2 mg/dL (8.7-10.3); Carbon Dioxide 27.8 mmol/L (21.6-31.8); Chloride 104 mmol/L (96-109); Globulin 2.2 g/dL (1.6-3.3); Glucose 106 mg/dL (70-110); Potassium 4.3 mmol/L (3.5-5.5); Sodium 143 mmol/L (135-145); Total Bilirubin 0.3 mg/dL (0.3-1.2); Total Protein 6.5 g/dL (6.2-8.2)
== END | disposition home or self-care (01) ==
LOC: LABWHC1 12:33
PROVIDERS: ATTEND Family Medicine
DX: I10 Essential (primary) hypertension (principal); E78.5 Hyperlipidemia, unspecified
CPT/HCPCS: 36415; 80053; 80061; 82306; 83036; 84443; 85027